=== PATIENT | female | born 1955 | race Caucasian/White ===

== ENCOUNTER 2024-10-18 10:52 | Outpatient (REF) | payer MEDICARE, MEDICAID, SELFPAY ==
--- NOTE | ~2024-10-18 | XR_ITS ---
CLINICAL HISTORY: M54.9 - Dorsalgia, unspecified 4 views thoracic spine Comparison: None Findings: Normal alignment. No acute fractures or dislocation. There is multiple level degenerative disc change. IMPRESSION: No acute findings. This document has been electronically signed by: Rodney Barrientos MD on 10/19/2024 09:46:42
--- NOTE | ~2024-10-18 | XR_ITS ---
CLINICAL HISTORY: M25.551 - Pain in right hip 2 view right hip Comparison: None Findings: The bones are intact. No significant arthritic change. The soft tissues are unremarkable. IMPRESSION: No acute findings. This document has been electronically signed by: Rodney Barrientos MD on 10/19/2024 09:44:13
== END 2024-10-18 10:53 | disposition home or self-care (01) ==
LOC: HO.XRAY 10:52
DX: J45.909 Unspecified asthma, uncomplicated (principal); F41.9 Anxiety disorder, unspecified; F32.A Depression, unspecified; F41.0 Panic disorder [episodic paroxysmal anxiety]; M81.0 Age-related osteoporosis without current pathological fracture; M79.7 Fibromyalgia; I10 Essential (primary) hypertension; E03.9 Hypothyroidism, unspecified; H53.8 Other visual disturbances; H40.059 Ocular hypertension, unspecified eye; R09.89 Other specified symptoms and signs involving the circulatory and respiratory systems; M25.551 Pain in right hip; D22.9 Melanocytic nevi, unspecified; M54.9 Dorsalgia, unspecified; R00.2 Palpitations; Z79.899 Other long term (current) drug therapy
CPT/HCPCS: 72070; 73502; 96127; 99202

== ENCOUNTER 2024-10-18 10:52 | Outpatient (AMB) | payer MEDICARE, MEDICAID, SELFPAY ==
--- NOTE | 2024-10-18 10:54 | A.OFFPC_ITS ---
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 Transferring care from [place] (Sonu Bond) . Medical records have been requested and have not received. Requesting for EKG and referral to Endocrine for Thyroid. See psy in [place]. Engine Room Helper Required: Yes Engine Room Helper Language: Hospice Superintendent Name: Lilian ([id number]) Information Interpreted: non-clinical & clinical Bulk Mail Technician: Present Accompanied by: Son-inlaw Allergies Iodinated Contrast Media Allergy (Intermediate, Verified 10/18/24 11:17) Itching iodine Allergy (Intermediate, Verified 10/18/24 11:17) Itching latex Allergy (Intermediate, Verified 10/18/24 11:17) Hives Sulfa (Sulfonamide Antibiotics) Allergy (Intermediate, Verified 10/18/24 11:17) Hives Medication List - Last Reconciled 10/18/24 by Angela Justin PA-C albuterol sulfate 90 mcg/actuation inhalation alendronate 35 mg PO QWEEK amlodipine 10 mg PO DAILY aspirin 81 mg PO DAILY clonazepam 1 mg PO TID PRN evolocumab (Repatha SureClick) 140 mg subcut Q2W famotidine 40 mg PO DAILY levothyroxine (Synthroid) 75 mcg PO DAILY lisinopril 40 mg PO DAILY montelukast 10 mg PO DAILY propranolol 40 mg PO ONCE sertraline 100 mg PO BID sucralfate 1 g PO BID trazodone 100 mg PO BEDTIME Tobacco use date assessed: 10/18/24 Fall risk assessment: No Falls in past year Last assessed Fall Risk: 10/18/24 Dental Screening Dental Screen Date: 10/18/24 Did you have a dental visit in the last 12 months?: No Did you have a dental problem in the last 6 months where you did not have access to dental care?: No Was dental information given to patient?: Patient declined 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 private eye Lilian ([id number]) was used for the duration of this visit. Sees psych through [facility], was previously being evaluated by endocrinology, Rheumatology and Ophthalmology. Presenting with chronic hip and low back pain following a fall from two years ago. The pain is persistent, described as a feeling of the hip being stuck affecting mobility with certain movements, worsened with prolonged standing. There is also associated mid back pain radiating to the sides and a burning sensation noted. The patient also reports visual disturbances characterized by seeing pink and experiencing low vision. Previous evaluation noted elevated intraocular pressure at 24 mmHg. Dermatological concerns include changing moles with one on the back increasing in size and another on the breast changing to a lilac color. Episodes of palpitations have been reported, not usually related to exertion and occur in various positions. The patient was also evaluated for suspected sleep apnea but has not undergone testing since the move to her current location. FORMERLY [facility], [facility] Surgical History History of YAG laser iridotomy of both eyes History of hysterectomy History of unilateral oophorectomy History of arthroplasty of left shoulder History of 3 sections Social History Housing: House Alcohol intake: never Patient Tobacco Use Status: Never used Tobacco e-Cigarette/Vaping Use: Never Used Second Hand Smoke Exposure: No service: No Current occupational status: unemployed Cognitive needs: No Hearing needs: No Vision needs: Yes (Glasses) Questionnaire PHQ-9 Over the last 2 weeks, how often have you been bothered by any of the following problems? 1. Little interest or pleasure in doing things: more than half the days 2. Feeling down, depressed, or hopeless: nearly every day 3. Trouble falling or staying asleep, or sleeping too much: nearly every day 4. Feeling tired or having little energy: nearly every day 5. Poor appetite or overeating: not at all 6. Feeling bad about yourself - or that you are a failure or have let yourself or your family down: several days 7. Trouble concentrating on things, such as reading the newspaper or watching television: several days 8. Moving or speaking so slowly that other people could have noticed. Or the opposite - being so fidgety or restless that you have been moving around a lot more than usual: several days 9. Thoughts that you would be better off or of hurting yourself in some way: not at all Total score: 14 Depression Screening Interpretation: Positive Depression Screening Follow-up: Existing condition and In treatment Depression Screening Done: Yes 54848 - PHQ-9 Billing: Yes Source: Developed by Drs. Oseas Barrera, Shelia Malagon, Angelo Quintana and colleagues, with an educational jacqueline from [employer]. Thrive Questionnaire Date Thrive assessed: 10/18/24 I am a: Patient What is your living situation today?: I do not have a steady places to live I am temporarily staying with others Within the past 12 months, did the food you bought not last and you didn't have the money to get more?: Sometimes True Within the past 12 months, did you worry whether your food would run out before you got money to buy more?: Sometimes True Do you have trouble paying for medicines?: No Do you have trouble getting transportation to medical appointments?: Yes Do you have trouble paying your heating and electricity bill?: Yes Do you have trouble taking care of your child, family member or friend?: No Do you have trouble with day-to-day activities such as bathing, preparing meals, shopping, managing finances, etc.?: I choose not to answer this question Are you currently unemployed and looking for a job?: No Are you interested in more education?: No Please select the resources that you would like help with: Housing/Half-Way, Food, Transportation and Utilities Currently or been in a relationship where the following occur: No concerns reported THRIVE Score: 5 AUDIT C Alcohol Use Questionnaire (AUDIT-C) 1. How often do you have a drink containing alcohol?: Never 3. How often do you have six or more drinks on one occasion?: Never Total Score: 0 RESHMA-7 AMB Questionnaire RESHMA-7 Date RESHMA - 7 assessed: 10/18/24 Feeling nervous, anxious, or on edge: 3 = Nearly every day Not being able to stop or control worryin = Nearly every day Worrying too much about different things: 3 = Nearly every day Trouble relaxin = More than half the days Being so restless that it is hard to sit still: 3 = Nearly every day Becoming easily annoyed or irritable: 3 = Nearly every day Feeling afraid as if something awful might happen: 3 = Nearly every day Total RESHMA-7 score (0-4 normal; 5-9 mild; 10-14 moderate; 15-21 severe): 20 Source: Developed by Drs. Oseas Barrera, Shelia Malagon, Angelo Quintana and colleagues, with an educational jacqueline from [employer]. RESHMA-7 Assessment Billing RESHMA-7 Assessment Tool: RESHMA-7 Assessment 45816 Review of Systems Const Denies body aches, Denies chills, Denies fever(s), Denies headache(s) and Denies poor appetite Eyes Reports as per HPI ENT Denies dysphagia, Denies dizziness, Denies headache(s) and Denies odynophagia Card Denies chest pain, Denies irregular heart rhythm, Denies lightheadedness, Reports palpitations and Denies dyspnea Resp Denies cough and Denies dyspnea GI Denies abdominal pain, Denies dysphagia, Denies nausea, Denies odynophagia and Denies vomiting Reports no additional complaints Musc Reports as per HPI and Denies abnormal gait Skin/Breast Reports system reviewed and no additional complaints, except as documented Neuro Denies abnormal gait, Denies dizziness and Denies headache(s) Psych Reports no additional complaints Endo Reports palpitations Physical exam (Primary Care) Vital Signs: Last Vital Signs Temp 97.1 F 10/18/24 10:58 Pulse 76 10/18/24 10:58 BP 120/70 10/18/24 10:58 Pulse Ox 96 10/18/24 10:58 Oxygen Delivery Method Room Air 10/18/24 10:58 BMI result Body Mass Index 25.8 Tobacco/Smoking Status: Tobacco use Status Tobacco use date assessed 10/18/24 10/18/24 10:55 Patient Tobacco Use Status Never used Tobacco 10/18/24 11:23 e-Cigarette/Vaping Use Never Used 10/18/24 11:23 PHQ-9: PHQ-9 Score PHQ-9: Total score 14 10/18/24 11:26 Depression Screening Interpretation: Positive Depression Screening Follow-up: Existing condition and In treatment Thrive Assessment: Date of Thrive Assessment Date Thrive assessed 10/18/24 10/18/24 10:55 Currently or been in a relationship where the following occur: No concerns reported Const General: cooperative, healthy appearing, comfortable and no acute distress Orientation/consciousness: patient oriented x3 HENMT Head: Yes normocephalic Ears: hearing grossly normal bilaterally General nose exam: Normal external nose present Eyes General: appearance normal, both eyes and all related structures Conjunctivae: conjunctivae normal Neck Neck: Yes full ROM and Yes no lymphadenopathy Resp Effort & Inspection: normal respiratory effort Auscultation: clear to auscultation bilaterally, no crackles, no rales, no rhonchi and no wheezes Cardio Rate: regular rate Rhythm: regular rhythm Back/Spine/Pelvis Other: Pain to palpation over thoracic paraspinal muscles no tenderness to palpation over the spine. Tenderness to palpation over right hip and pain with lateral raise of right hip. Skin General skin exam: no rashes or lesions noted Neuro General: patient oriented x3 Gait exam (Neuro): Normal gait present Extrem General: Yes normal to inspection, Yes full ROM and No edema Psych Affect: normal affect Attitude: cooperative Insight: Good insight present (Psych) Judgement: Good judgement present (Psych) Coding Level of Care Code New Pt Level 4 (28181) Diagnoses Asthma J45.909 Anxiety F41.9 Depression F32.A Panic attack F41.0 Osteoporosis M81.0 Fibromyalgia M79.7 Hypertension I10 Hypothyroid E03.9 Blurry vision H53.8 Increased intraocular pressure H40.059 Choking episode occurring at night R09.89 Right hip pain M25.551 Atypical nevi D22.9 Mid back pain M54.9 Palpitations R00.2 Additional Codes RESHMA-7 Assessment Billing - RESHMA-7 Assessment Tool: RESHMA-7 Assessment 14616 ([id number]) PHQ-9 - 35275 - PHQ-9 Billing: Yes ([id number]) Assessment & Plan Assessment & Plan (1) Asthma: Code(s): J45.909 - Unspecified asthma, uncomplicated Category: Medical Plan: Asthma currently controlled on present medications. Continue on Montelukast and albuterol prn.? Avoid triggers such as allergies. (2) Anxiety: Code(s): F41.9 - Anxiety disorder, unspecified Category: Medical Plan: Sees psych through [facility] and currently on medication. On sertraline, trazodone , and clonazepam as needed. Feels good on these medications and continue to follow with [facility]. (3) Depression: Code(s): F32.A - Depression, unspecified Category: Medical Plan: see above (4) Panic attack: Code(s): F41.0 - Panic disorder [episodic paroxysmal anxiety] Category: Medical Plan: see above (5) Osteoporosis: Code(s): M81.0 - Age-related osteoporosis without current pathological fracture Category: Medical Plan: Currently on alendronate by last PCP. She is requesting a referral to endocrinology which was placed today. (6) Fibromyalgia: Code(s): M79.7 - Fibromyalgia Category: Medical Plan: Patient not currently being treated for fibromyalgia but was being seen by rheumatology while in [place]. Referral was placed to rheumatology today. (7) Hypertension: Code(s): I10 - Essential (primary) hypertension Category: Medical Plan: Continue on current blood pressure medication. Avoid salt intake and encourage healthy diet and regular exercise. (8) Hypothyroid: Code(s): E03.9 - Hypothyroidism, unspecified Category: Medical Plan: Currently on Synthroid 75mcg plan to obtain repeat blood work. Patient had reaction to levothyroxine and requires the name brand Synthroid (9) Blurry vision: Code(s): H53.8 - Other visual disturbances Category: Medical Plan: Patient reporting blurry vision and seeing a ?pink color? she is found to have increased intra-ocular pressure would be evaluated by a retina specialist in [place]. Referral was placed to Ophthalmology today. (10) Increased intraocular pressure: Code(s): H40.059 - Ocular hypertension, unspecified eye Category: Medical Plan: See above (11) Choking episode occurring at night: Code(s): R09.89 - Other specified symptoms and signs involving the circulatory and respiratory systems Category: Medical Plan: Patient reporting choking episode at bedtime and was previously being evaluated for sleep apnea but did not complete the sleep study test. Referral was placed for home sleep study (12) Right hip pain: Code(s): M25.551 - Pain in right hip Category: Medical Plan: Patient complaining of right hip pain plan to obtain x-ray for further evaluation patient may use Tylenol and topical creams as needed for pain. (13) Atypical nevi: Code(s): D22.9 - Melanocytic nevi, unspecified Category: Medical Plan: Referral was placed for Dermatology (14) Mid back pain: Code(s): M54.9 - Dorsalgia, unspecified Category: Medical Plan: Mid back x-ray ordered for further evaluation. She has been having pain in the paraspinal muscles likely related to her posture recommend heating pads and topical muscle creams. (15) Palpitations: Code(s): R00.2 - Palpitations Category: Medical Plan: Patient complaining of intermittent palpitations without symptoms but just feeling like her heart is racing. Plan to obtain Holter monitor for further evaluation and can consider referral to Cardiology Plan I have outlined a detailed plan that includes scheduling x-rays of the patient's hip and spine for further evaluation of her chronic pain and posture issues. An urgent referral to an client portfolio manager has been made to address her concerns of visual changes and elevated intraocular pressure, possibly indicating glaucoma. Dermatological evaluation by a specialist is essential for the changing moles she reports. A Holter monitor study will be conducted to analyze her cardiac rhythm irregularities, and a home sleep study will be set up to confirm suspected sleep apnea. I have coordinated referrals and follow-up care with the required specialists, ensuring that appointments are efficiently scheduled. This note was constructed using voice recognition software. While every effort has been made to ensure accuracy and life agent, still areas may have been included sometimes these areas may affect the content or meeting of the given symptoms. Total time spent caring for the patient today was 45 minutes. This includes time spent before the visit reviewing the chart, time spent during the visit, and time spent after the visit and documentation. Patient was informed and verbally consented to the use of an ambient scribe for clinic note documentation during this visit. Orders: Orders TSH reflex Free T4 Today E03.9 - Hypothyroidism, unspecified, Z00.00 - Encounter for general adult medical examination without abnormal findings Free T4 (Free Thyroxine) Today E03.9 - Hypothyroidism, unspecified, Z00.00 - Encounter for general adult medical examination without abnormal findings Comprehensive Met. Panel Today I10 - Essential (primary) hypertension, Z00.00 - Encounter for general adult medical examination without abnormal findings Complete Blood Count Auto Diff Today I10 - Essential (primary) hypertension, Z00.00 - Encounter for general adult medical examination without abnormal findings Vitamin D 25-OH Total Today I10 - Essential (primary) hypertension, Z00.00 - Encounter for general adult medical examination without abnormal findings RT home sleep study Today R09.89 - Other specified symptoms and signs involving the circulatory and respiratory systems XR thoracic spine 2V Today M54.9 - Dorsalgia, unspecified Vitamin B12 and Folate Today I10 - Essential (primary) hypertension, Z13.21 - Encounter for screening for nutritional disorder Hemoglobin A1c Today Z13.1 - Encounter for screening for diabetes mellitus Lipid Panel Today Z13.220 - Encounter for screening for lipoid disorders XR hip RT min 2V Today M25.551 - Pain in right hip ECG 3 day holter monitor Today R00.2 - Palpitations Referrals Endocrinology Referral E03.9 - Hypothyroidism, unspecified, M81.0 - Age- related osteoporosis without current pathological fracture Rheumatology Referral M79.7 - Fibromyalgia Ophthalmology Referral H40.059 - Ocular hypertension, unspecified eye, H53.8 - Other visual disturbances Dermatology Referral D22.9 - Melanocytic nevi, unspecified Medications: New evolocumab (Capri Riojas) 140 mg subcut Q2W 2 mL 0RF Synthroid (levothyroxine) 75 mcg PO DAILY 90 tabs 0RF NS
[2024-10-18 10:58] VITALS: BP 120/70; PULSE 76; TEMP 36.2; O2SAT 96; BMI 25.8
== END 2024-10-18 12:07 | disposition home or self-care (01) ==
LOC: HO.HMCH 10:53
DX: J45.909 Unspecified asthma, uncomplicated (principal); F41.9 Anxiety disorder, unspecified; F32.A Depression, unspecified; F41.0 Panic disorder [episodic paroxysmal anxiety]; M81.0 Age-related osteoporosis without current pathological fracture; M79.7 Fibromyalgia; I10 Essential (primary) hypertension; E03.9 Hypothyroidism, unspecified; H53.8 Other visual disturbances; H40.059 Ocular hypertension, unspecified eye; R09.89 Other specified symptoms and signs involving the circulatory and respiratory systems; M25.551 Pain in right hip; D22.9 Melanocytic nevi, unspecified; M54.9 Dorsalgia, unspecified; R00.2 Palpitations

== ENCOUNTER → 2024-10-18 12:32 | Outpatient (BNV) | payer MEDICARE, MEDICAID, SELFPAY | PROVIDERS: Visit Provider Specialist | DX: M25.551 Pain in right hip (principal); M54.9 Dorsalgia, unspecified | CPT/HCPCS: 72070; 73502 ==

== ENCOUNTER → 2024-10-28 12:51 | Outpatient (REF) | payer MEDICARE, MEDICAID, SELFPAY | LOC: HO.CARD 12:51 | DX: R00.2 Palpitations (principal) | CPT/HCPCS: 93242 ==

== ENCOUNTER → 2024-10-28 12:53 | Outpatient (BNV) | payer MEDICARE, MEDICAID, SELFPAY | PROVIDERS: Visit Provider Internal Medicine | DX: I47.10 Supraventricular tachycardia, unspecified (principal) | CPT/HCPCS: 93244 ==

== ENCOUNTER 2024-11-27 12:48 | Outpatient (REF) | payer MEDICARE, MEDICAID, SELFPAY ==
--- NOTE | ~2024-11-27 | MM_ITS ---
EXAMINATION: DXA BONE DENSITY AXIAL HISTORY: Z78.0 - Asymptomatic menopausal state TECHNIQUE: [place] Dual energy absorptiometry (DEXA) of the lumbar spine, total left hip, and femoral neck was performed. COMPARISON: There are no prior studies for comparison. FINDINGS: The bone mineral density of the lumbar spine is 0.904 g/cm2, corresponding to a T-score of -2.3, and a Z-score of -0.5. This is indicative of osteopenia. The bone mineral density of the left total hip is 0.775 g/cm2, corresponding to a T-score of -1.8, and a Z-score of -0.3. This is indicative of osteopenia. The bone mineral density of the left femoral neck is 0.740 g/cm2, corresponding to a T-score of -2.1, and a Z-score of -.4. This is indicative of osteopenia. FRACTURE RISK: The FRAX index suggests a risk of major osteoporotic fracture of 11.8%, and of hip fracture 2.9%. MM/XR DEXA axial skeleton IMPRESSION: Based on bone mineral density, and according to World Health Organization (WHO) criteria, the diagnosis is consistent with osteopenia. Statistically, 68% of repeat scans fall within 1 SD (+/- 0.010 g/cm2 for AP spine L1-L4) and 1 SD (+/- 0.012 g/cm2 for femur total) FRAX is a trademark of the [employer] Met[employer], a World Health Organization (WHO) Collaborating Center. Electronically signed by: Oseas Cheatham MD 11/27/2024 01:29 PM EDT
== END 2024-11-27 12:49 | disposition home or self-care (01) ==
LOC: HO.MAMMO 12:48
DX: Z13.820 Encounter for screening for osteoporosis (principal); Z78.0 Asymptomatic menopausal state
CPT/HCPCS: 77080

== ENCOUNTER → 2024-11-27 13:00 | Outpatient (BNV) | payer MEDICARE, MEDICAID, SELFPAY | PROVIDERS: Visit Provider Radiology Diagnostic Radiology | DX: E28.39 Other primary ovarian failure (principal) | CPT/HCPCS: 77080 ==

== ENCOUNTER 2024-11-29 08:43 | Outpatient (REF) | payer MEDICARE, MEDICAID, SELFPAY ==
[2024-11-29 11:27] LABS: MANUAL DIFF FLAG NO
[2024-11-29 11:54] LABS: Hematocrit 40.1 % (37.0-47.0); Hemoglobin 13.2 g/dl (12.0-16.0); Imm Gran Abs Auto 0.01 X10*3/uL (0.00-0.03); Imm Gran Pct Auto 0.2 % (0.0-0.4); Lymphocytes Absolute Auto 2.0 X10*3/uL (1.2-4.9); Mean Corpuscular HGB Conc 32.9 g/dl (31.0-35.0); Mean Corpuscular Hemoglobin 30.3 pg (27.0-33.0); Mean Corpuscular Volume 92.0 fL (80.0-98.0); NRBC Abs Auto 0.000 X10*3/uL (0.0-0.012); NRBC Pct Auto 0.0 /100WBC (0.0-0.2); Platelet Count 233 X10*3/uL (160-400); Red Blood Count 4.36 X10*6/uL (4.20-5.50); White Blood Count 4.5 X10*3/uL (4.8-10.8)
[2024-11-29 12:01] LABS: Alanine Aminotransferase 48 U/L (0-31); Albumin Level 4.3 g/dL (3.5-5.0); Alkaline Phosphatase 98 U/L (39-117); Anion Gap 11 (12-20); Aspartate Amino Transferase 42 U/L (5-31); Blood Urea Nitrogen 24 mg/dL (9-16); Calcium 9.8 mg/dL (8.4-10.2); Carbon Dioxide 29 mmol/L (22-29); Chloride 106 mmol/L (96-108); Cholesterol 246 mg/dL (<200); Estimated Glomerular Filt Rate > 60; HDL Cholesterol 78 mg/dL (>40); Potassium 4.4 mmol/L (3.3-5.1); Sodium 142 mmol/L (135-145); Total Protein 7.1 g/dL (6.5-8.0); Triglycerides 82 mg/dL (<150)
[2024-11-29 12:03] LABS: Hemoglobin A1C 126.5559 umol/L; Total Hemoglobin (HGBA1C) 3524.7556 umol/L
[2024-11-29 12:21] LABS: Free T4 (Free Thyroxine) 1.19 ng/dL (0.71-1.85)
[2024-11-29 12:47] LABS: Folate 14.8 ng/mL (> or = 4.0); Vitamin B12 > 2000 pg/mL (200-900)
== END 2024-11-29 08:44 | disposition home or self-care (01) ==
LOC: HO.WFDLDS 08:43
DX: Z00.00 Encounter for general adult medical examination without abnormal findings (principal); I10 Essential (primary) hypertension; E03.9 Hypothyroidism, unspecified; Z13.21 Encounter for screening for nutritional disorder; Z13.1 Encounter for screening for diabetes mellitus; Z13.220 Encounter for screening for lipoid disorders
CPT/HCPCS: 36415; 80053; 80061; 82306; 82607; 82746; 83036; 84439; 84443; 85025

== ENCOUNTER 2024-12-04 15:01 | Outpatient (AMB) | payer MEDICARE, MEDICAID, SELFPAY ==
[2024-12-04 15:05] VITALS: BP 112/60; BMI 26.1
--- NOTE | 2024-12-04 15:05 | A.OFFPC_ITS ---
Vital Signs 12/04/24 15:05 Height 4 ft 11.85 in Weight 133 lb BMI 26.1 BP 112/60 Blood Pressure Location Lt brachial Position Sitting Intake Visit Reasons: 1 month Front Desk Supervisor Required: Yes Front Desk Supervisor Language: Kazakh Accompanied by: Son Allergies Iodinated Contrast Media Allergy (Intermediate, Verified 10/18/24 11:17) Itching iodine Allergy (Intermediate, Verified 10/18/24 11:17) Itching latex Allergy (Intermediate, Verified 10/18/24 11:17) Hives Sulfa (Sulfonamide Antibiotics) Allergy (Intermediate, Verified 10/18/24 11:17) Hives Medication List - Last Reconciled 12/04/24 by Angela Justin PA-C albuterol sulfate 90 mcg/actuation 1 puff inhalation Q4-6H PRN alendronate 35 mg PO QWEEK amlodipine 10 mg PO DAILY aspirin 81 mg PO DAILY clonazepam 1 mg PO TID PRN evolocumab (Repatha SureClick) 140 mg subcut Q2W famotidine 40 mg PO DAILY lisinopril 40 mg PO DAILY montelukast 10 mg PO DAILY propranolol 40 mg PO DAILY sertraline 100 mg PO BID sucralfate 1 g PO BID Synthroid (levothyroxine) 75 mcg PO DAILY NS trazodone 100 mg PO BEDTIME Tobacco use date assessed: 12/04/24 Last assessed Fall Risk: 12/04/24 Dental Screening Dental Screen Date: 12/04/24 Did you have a dental visit in the last 12 months?: No Did you have a dental problem in the last 6 months where you did not have access to dental care?: No Was dental information given to patient?: No HPI 1 month HPI Details 69 year old female with hypertension, fi bromyalgia, asthma, osteoporosis, anxiety, hypothyroid last seen 09/2024 coming in for follow up. In review of the notes, patient completed holter monitor 10/2024 Normal sinus rhythm no other abnormality. Presenting with hyperlipidemia and elevated liver enzymes. The patient has been dealing with high cholesterol for several years and is currently on Repatha, prescribed by her primary physician in [place]. The LDL cholesterol level is 152 mg/dL, which is above the desired level of less than 130 mg/dL. The patient cannot tolerate statins due to liver pain experienced with previous medications like Lipitor. The patient has elevated AST and ALT levels, and a history of hepatitis and pancreatitis, which raises concerns about liver function. The patient is on a B12 supplement, which may contribute to the high B12 levels observed in her blood work. Patient was recently seen by Ophthalmology and advised to see a retina specialist for possible retinal detachment. The patient underwent surgery on her right shoulder and continues to experience pain, requiring orthopedic evaluation. The patient reports back pain and is advised to seek evaluation at a specialized spine center. [facility] Surgical History History of YAG laser iridotomy of both eyes History of hysterectomy History of unilateral oophorectomy History of arthroplasty of left shoulder History of 3 sections Social History Housing: House Alcohol intake: never Patient Tobacco Use Status: Never used Tobacco e-Cigarette/Vaping Use: Never Used Second Hand Smoke Exposure: No service: No Current occupational status: unemployed Cognitive needs: No Hearing needs: No Vision needs: Yes (Glasses) Questionnaire PHQ-9 Over the last 2 weeks, how often have you been bothered by any of the following problems? 1. Little interest or pleasure in doing things: more than half the days 2. Feeling down, depressed, or hopeless: nearly every day 3. Trouble falling or staying asleep, or sleeping too much: nearly every day 4. Feeling tired or having little energy: nearly every day 5. Poor appetite or overeating: not at all 6. Feeling bad about yourself - or that you are a failure or have let yourself or your family down: several days 7. Trouble concentrating on things, such as reading the newspaper or watching television: several days 8. Moving or speaking so slowly that other people could have noticed. Or the opposite - being so fidgety or restless that you have been moving around a lot more than usual: several days 9. Thoughts that you would be better off or of hurting yourself in some way: not at all Total score: 14 Depression Screening Interpretation: Positive Depression Screening Follow-up: Existing condition and In treatment Depression Screening Done: Yes 63751 - PHQ-9 Billing: Yes Source: Developed by Drs. Oseas Barrera, Angelo Pichardo and colleagues, with an educational jacqueline from [employer]. Thrive Questionnaire Date Thrive assessed: 12/04/24 I am a: Patient What is your living situation today?: I do not have a steady places to live I am temporarily staying with others Within the past 12 months, did the food you bought not last and you didn't have the money to get more?: Sometimes True Within the past 12 months, did you worry whether your food would run out before you got money to buy more?: Sometimes True Do you have trouble paying for medicines?: No Do you have trouble getting transportation to medical appointments?: Yes Do you have trouble paying your heating and electricity bill?: Yes Do you have trouble taking care of your child, family member or friend?: No Do you have trouble with day-to-day activities such as bathing, preparing meals, shopping, managing finances, etc.?: I choose not to answer this question Are you currently unemployed and looking for a job?: No Are you interested in more education?: No Currently or been in a relationship where the following occur: No concerns reported THRIVE Score: 5 RESHMA-7 AMB Questionnaire RESHMA-7 Date RESHMA - 7 assessed: 12/04/24 Source: Developed by Drs. Oseas Barrera, Angelo Pichardo and colleagues, with an educational jacqueline from [employer]. Review of Systems Const Denies body aches, Denies chills, Denies fever(s), Denies headache(s) and Denies poor appetite Eyes Reports no additional complaints ENT Denies dizziness and Denies headache(s) Card Denies chest pain, Denies lightheadedness and Denies dyspnea Resp Denies dyspnea GI Reports as per HPI, Reports abdominal pain, Denies nausea and Denies vomiting Reports no additional complaints Musc Reports no additional complaints and Denies abnormal gait Skin/Breast Reports system reviewed and no additional complaints, except as documented Neuro Denies abnormal gait, Denies dizziness and Denies headache(s) Psych Reports no additional complaints Physical exam (Primary Care) Vital Signs: Last Vital Signs BP 112/60 12/04/24 15:05 BMI result Body Mass Index 26.1 Tobacco/Smoking Status: Tobacco use Status Tobacco use date assessed 12/04/24 12/04/24 15:15 Patient Tobacco Use Status Never used Tobacco 12/04/24 15:11 e-Cigarette/Vaping Use Never Used 12/04/24 15:11 PHQ-9: PHQ-9 Score PHQ-9: Total score 14 12/04/24 15:25 Depression Screening Interpretation: Positive Depression Screening Follow-up: Existing condition and In treatment Thrive Assessment: Date of Thrive Assessment Date Thrive assessed 12/04/24 12/04/24 15:15 Currently or been in a relationship where the following occur: No concerns reported Const General: cooperative, healthy appearing, comfortable and no acute distress Orientation/consciousness: patient oriented x3 HENMT Head: Yes normocephalic Ears: hearing grossly normal bilaterally General nose exam: Normal external nose present Eyes General: appearance normal, both eyes and all related structures Conjunctivae: conjunctivae normal Neck Neck: Yes full ROM and Yes no lymphadenopathy Resp Effort & Inspection: normal respiratory effort Auscultation: clear to auscultation bilaterally, no crackles, no rales, no rhonchi and no wheezes Cardio Rate: regular rate Rhythm: regular rhythm GI Palpation (GI): Soft to palpation, not firm, nontender, no guarding, not rigid, no masses and No Rebound tenderness present Skin General skin exam: no rashes or lesions noted Neuro General: patient oriented x3 Gait exam (Neuro): Normal gait present Extrem General: Yes normal to inspection, Yes full ROM and No edema Psych Affect: normal affect Attitude: cooperative Insight: Good insight present (Psych) Judgement: Good judgement present (Psych) Coding Level of Care Code Est Pt Level 4 (33213) Diagnoses Elevated LFTs R79.89 RUQ discomfort R10.11 Left shoulder pain M25.512 Low back pain M54.50 Mid back pain M54.9 High serum vitamin B12 R79.89 Retinal detachment H33.20 Hypercholesterolemia E78.00 Hypertension I10 Palpitations R00.2 Additional Codes PHQ-9 - 49974 - PHQ-9 Billing: Yes ([id number]) Assessment & Plan Assessment & Plan (1) Elevated LFTs: Code(s): R79.89 - Other specified abnormal findings of blood chemistry Category: Medical Plan: Plan to repeat liver tests as well as hepatitis panel. Also plan to obtain abdominal ultrasound for elevation of LFTs and right upper quadrant discomfort. (2) RUQ discomfort: Code(s): R10.11 - Right upper quadrant pain Category: Medical Plan: Patient reporting right upper quadrant discomfort occasionally that last for several minutes before resolving spontaneously. There is no identified inciting events including but not limited to food. On exam there is no tenderness to palpation. Plan to obtain abdominal ultrasound for further evaluation. (3) Left shoulder pain: Comment: hx of surgery but unsure Code(s): M25.512 - Pain in left shoulder Category: Medical Plan: Patient reporting left shoulder pain and does have a history of some kind of procedure but is unsure of the name. However the procedure resulted in her shoulder needing to be immobilized for about 6 months. Likely rotator cuff repair. She is requesting to see a specialist for the continued left shoulder pain and referral was placed to orthopedics today. (4) Low back pain: Code(s): M54.50 - Low back pain, unspecified Category: Medical Plan: Patient reporting low and mid back pain x-rays were within normal limits. She is requesting a referral to Orthopedics and referral was placed to [facility] today. (5) Mid back pain: Code(s): M54.9 - Dorsalgia, unspecified Category: Medical Plan: See above (6) High serum vitamin B12: Code(s): R79.89 - Other specified abnormal findings of blood chemistry Category: Medical Plan: Discontinue vitamin B12 supplement at this time and redrawn 3 months. (7) Retinal detachment: Code(s): H33.20 - Serous retinal detachment, unspecified eye Category: Medical Plan: Patient having possible retinal detachment as told by her pediatric occupational therapist. Referral was placed to a retina specialist today. I did review with her red flag symptoms and when to present for re-evaluation as well. She should continue to follow with her pediatric occupational therapist for further guidance (8) Hypercholesterolemia: Code(s): E78.00 - Pure hypercholesterolemia, unspecified Category: Medical Plan: Avoid foods that are high in cholesterol such as red meat, fried foods, eggs and baked goods. Triglyceride goal of less than 150 and LDL goal of less than 130. Patient is currently on Repatha and has not missed any doses and continues to have significantly elevated cholesterol with LDL at 152. Plan to add Zetia to medication regimen and redraw labs in 3 months. Discussed possible side effects and when to present for re-evaluation (9) Hypertension: Code(s): I10 - Essential (primary) hypertension Category: Medical Plan: Continue on current blood pressure medication. Avoid salt intake and encourage healthy diet and regular exercise. (10) Palpitations: Code(s): R00.2 - Palpitations Category: Medical Plan: Holter monitor was negative and palpitations have resolved at this time. Plan The plan for managing hyperlipidemia includes continuing Repatha and considering the addition of Zetia if dietary modifications do not achieve the desired LDL levels. For elevated liver enzymes, repeat liver function tests will be conducted in a month, and an ultrasound may be ordered if levels remain high. The patient is advised to discontinue supplements due to elevated levels and will have levels rechecked at the next appointment. Referrals have been made for a retina specialist to evaluate retinal detachment and for orthopedic specialists to address shoulder and back pain. This note was constructed using voice recognition software. While every effort has been made to ensure accuracy and clinical recruiter, still areas may have been included sometimes these areas may affect the content or meeting of the given symptoms. Total time spent caring for the patient today was 30 minutes. This includes time spent before the visit reviewing the chart, time spent during the visit, and time spent after the visit and documentation. Patient was informed and verbally consented to the use of an ambient scribe for clinic note documentation during this visit. Orders: Orders IRON PROFILE Today R7.89 - Other specified abnormal findings of blood chemistry Lipid Panel 3 Months E78.00 - Pure hypercholesterolemia, unspecified Liver Panel Today R7.89 - Other specified abnormal findings of blood chemistry Hepatitis B,C Profile Today R7.89 - Other specified abnormal findings of blood chemistry Ferritin Today R7.89 - Other specified abnormal findings of blood chemistry Lipase Today R79.89 - Other specified abnormal findings of blood chemistry Amylase Today R79.89 - Other specified abnormal findings of blood chemistry US abdomen complete Today R10.11 - Right upper quadrant pain, R79.89 - Other specified abnormal findings of blood chemistry Vitamin B12 and Folate 3 Months R79.89 - Other specified abnormal findings of blood chemistry Referrals Orthopedics Referral M25.512 - Pain in left shoulder Ophthalmology Referral H33.20 - Serous retinal detachment, unspecified eye Orthopedics Referral M54.50 - Low back pain, unspecified, M54.9 - Dorsalgia, unspecified Medications: New ezetimibe (Zetia) 10 mg PO DAILY 90 tabs 0RF Refilled evolocumab (Repatha SureClick) 140 mg subcut Q2W 6 mL 1RF R79.89 - Other specified abnormal findings of blood chemistry
== END 2024-12-04 16:05 | disposition home or self-care (01) ==
LOC: HO.HMCH 15:02
DX: R79.89 Other specified abnormal findings of blood chemistry (principal); R10.11 Right upper quadrant pain; M25.512 Pain in left shoulder; M54.50 Low back pain, unspecified; M54.9 Dorsalgia, unspecified; H33.20 Serous retinal detachment, unspecified eye; E78.00 Pure hypercholesterolemia, unspecified; I10 Essential (primary) hypertension; R00.2 Palpitations

== ENCOUNTER → 2024-12-04 15:01 | Outpatient (BNVA) | payer MEDICARE, MEDICAID, SELFPAY | DX: R79.89 Other specified abnormal findings of blood chemistry (principal); R10.11 Right upper quadrant pain; M25.512 Pain in left shoulder; M54.50 Low back pain, unspecified; M54.9 Dorsalgia, unspecified; E78.00 Pure hypercholesterolemia, unspecified; R00.2 Palpitations; I10 Essential (primary) hypertension | CPT/HCPCS: 96127; 99212 ==

== ENCOUNTER 2024-12-18 13:25 | Outpatient (AMB) | payer MEDICARE, MEDICAID, SELFPAY ==
[2024-12-18 13:27] VITALS: BP 118/64; PULSE 70; O2SAT 96; BMI 26.1
--- NOTE | 2024-12-18 13:27 | MHC.OFFVIS ---
Vital Signs 12/18/24 13:27 Height 4 ft 11.85 in Weight 132 lb 15.02 oz BMI 26.1 BP 118/64 Blood Pressure Location Lt brachial Position Sitting Pulse 70 Pulse Source Pulse Oximeter Pulse Oximetry (%) 96 Oxygen Delivery Method Room Air Intake Visit Reasons: Age related osteoporosis Intake Note: New patient internally referred by PCP for Osteoporosis, last DEXA was on 11/27/2024 at [facility] [place]. Registered Route Associate Required: Yes Registered Route Associate Language: Toolmaker Services: Registered Route Associate Present Registered Route Associate Name: Frances handle machine operator services Information Interpreted: non-clinical & clinical Accompanied by: Self / Same As Patient Allergies Iodinated Contrast Media Allergy (Intermediate, Verified 12/18/24 13:31) Itching iodine Allergy (Intermediate, Verified 12/18/24 13:31) Itching latex Allergy (Intermediate, Verified 12/18/24 13:31) Hives Sulfa (Sulfonamide Antibiotics) Allergy (Intermediate, Verified 12/18/24 13:31) Hives Medication List - Last Reconciled 12/18/24 by Oseas Alejandro MD albuterol sulfate 90 mcg/actuation 1 puff inhalation Q4-6H PRN alendronate 35 mg PO QWEEK amlodipine 10 mg PO DAILY aspirin 81 mg PO DAILY clonazepam 1 mg PO TID PRN evolocumab (Repatha SureClick) 140 mg subcut Q2W ezetimibe (Zetia) 10 mg PO DAILY famotidine 40 mg PO DAILY lisinopril 40 mg PO DAILY montelukast 10 mg PO DAILY propranolol 40 mg PO DAILY sertraline 100 mg PO BID sucralfate 1 g PO BID Synthroid (levothyroxine) 75 mcg PO DAILY NS trazodone 100 mg PO BEDTIME HPI Comments Details: 69 YO Female is seen in cfonsultation at the request of PCP for low bone mass First diagnosed in 1 yr ago .Saw specialist in [place] . Had thyroid nodules Received treatment with alendronate , from 11/2023 to 11/2024 . Tolerated treatment well without complication. No history of pathologic fracture or ONJ. Has few servings of dietary calcium per day in the form of goat cheese, salmon . Not Takes Calcium supplement [] mg daily in divided doses. Not Takes IU of Vitamin D daily. Denies ever using PPI, anticoagulant, antiepileptic or glucocorticoid medication. Does weight bearing exercise 7 days per week in the form of elastic rope . 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 UTD on dental cleanings and sees dentist every 6 months. No planned upcoming dental work or extractions. No tabacco use or Heavy ETOH use DXA dated 11/27/24 : FINDINGS: The bone mineral density of the lumbar spine is 0.904 g/cm2, corresponding to a T-score of -2.3, and a Z-score of -0.5. This is indicative of osteopenia. The bone mineral density of the left total hip is 0.775 g/cm2, corresponding to a T-score of -1.8, and a Z-score of -0.3. This is indicative of osteopenia. The bone mineral density of the left femoral neck is 0.740 g/cm2, corresponding to a T-score of -2.1, and a Z-score of -.4. This is indicative of osteopenia. FRACTURE RISK: The FRAX index suggests a risk of major osteoporotic fracture of 11.8%, and of hip fracture 2.9%. MM/XR DEXA axial skeleton IMPRESSION: Based on bone mineral density, and according to World Health Organization (WHO) criteria, the diagno Labs: [facility] Surgical History History of YAG laser iridotomy of both eyes History of hysterectomy History of unilateral oophorectomy History of arthroplasty of left shoulder History of 3 sections Social History Housing: House Alcohol intake: never Patient Tobacco Use Status: Never used Tobacco e-Cigarette/Vaping Use: Never Used Second Hand Smoke Exposure: No service: No Current occupational status: unemployed Cognitive needs: No Hearing needs: No Vision needs: Yes (Glasses) Physical Exam There are no Cushingoid features. Absence of blue sclera. Absence of kyphosis. Thyroid gland is of nl size and weighs 15 gms. There are no thyroid nodules palpated. Lungs CTA. Heart S1 S2 Reg R/R Abdominal exam benign. Muscle strength 5/5 . Examination of spine reveals absence of tenderness on palpation Assessment & Plan Assessment & Plan (1) Osteoporosis: Code(s): M81.0 - Age-related osteoporosis without current pathological fracture Category: Medical Plan: This is a 69-year-old female found to have low bone mass with partial secondary workup. Based on FRAX, risk for major osteoporotic fracture and hip fracture is low and not sure wo Plan is to complete the secondary workup by checking urine immunofixation, phosphorus level, 24 hour urine for calcium and creatinine. Assuming above is normal we will ensure 1200 mg of calcium and continued vitamin D3 supplement. Would discontinue alendronate. Could consider initiation of raloxifene as patient has a strong family history of breast cancer this would provide protection as well as protection against vertebral fracture in this patient with low bone mass. Will discuss at next visit Orders: Orders Creatinine, 24 Hr Group Today M81.0 - Age-related osteoporosis without current pathological fracture Immunofixation, Random Urine Today M81.0 - Age-related osteoporosis without current pathological fracture Phosphorus Today M81.0 - Age-related osteoporosis without current pathological fracture Calcium, 24 Hr Ur Today M81.0 - Age-related osteoporosis without current pathological fracture Coding Level of Care Code New Pt Level 4 (05423) Diagnoses Osteoporosis M81.0
== END 2024-12-18 14:07 | disposition home or self-care (01) ==
LOC: HO.ENCR 13:26
PROVIDERS: Visit Provider Internal Medicine Endocrinology, Diabetes & Metabolism
DX: M81.0 Age-related osteoporosis without current pathological fracture (principal)
CPT/HCPCS: 99204

== ENCOUNTER → 2024-12-18 13:25 | Outpatient (BNVA) | payer MEDICARE, MEDICAID, SELFPAY | PROVIDERS: Visit Provider Internal Medicine Endocrinology, Diabetes & Metabolism | DX: M81.0 Age-related osteoporosis without current pathological fracture (principal); Z80.3 Family history of malignant neoplasm of breast; Z90.710 Acquired absence of both cervix and uterus | CPT/HCPCS: 99202 ==

== ENCOUNTER → 2024-12-31 09:58 | Outpatient (REF) | payer MEDICARE, MEDICAID, SELFPAY | LOC: HO.SL 09:58 | DX: G47.33 Obstructive sleep apnea (adult) (pediatric) (principal); R09.89 Other specified symptoms and signs involving the circulatory and respiratory systems; R06.83 Snoring; R40.0 Somnolence | CPT/HCPCS: 95806 ==

== ENCOUNTER → 2024-12-31 10:09 | Outpatient (BNV) | payer MEDICARE, MEDICAID, SELFPAY | PROVIDERS: Visit Provider Internal Medicine | DX: G47.33 Obstructive sleep apnea (adult) (pediatric) (principal) | CPT/HCPCS: 95806 ==

== ENCOUNTER 2025-01-17 13:09 | Outpatient (AMB) | payer MEDICARE, MEDICAID, SELFPAY ==
--- NOTE | 2025-01-17 13:31 | MHC.OFFVIS ---
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 HST in chart(AHI-22, JANNIE 76%. APAP 6-20cm). Auxiliary Equipment Tender Required: Yes Auxiliary Equipment Tender Language: Business Excellence Leader Services: Auxiliary Equipment Tender Offered & Declined Auxiliary Equipment Tender Name: Son-in-law Information Interpreted: non-clinical & clinical Accompanied by: Son Allergies Iodinated Contrast Media Allergy (Intermediate, Verified 01/17/25 13:35) Itching iodine Allergy (Intermediate, Verified 01/17/25 13:35) Itching latex Allergy (Intermediate, Verified 01/17/25 13:35) Hives Sulfa (Sulfonamide Antibiotics) Allergy (Intermediate, Verified 01/17/25 13:35) Hives HPI Comments Details: 69 year old [place] female referred to us by Angela Justin, for evaluation of MARIA G. Her son interprets for her. HST c/w AHI 21.9 and oxygen desaturation oxygen 79%. Oxygen below 88%. She has been feeling very tired and difficulty swallowing. She snoring and choking at night, she wakes up gasping for air. She has dry mouth when she wakes up in the morning. She goes to bed at 11pm and wakes up 8am in the morning, with zero bathroom breaks. She has asthma and mixes atrovent with albuterol works more effectively with the nebulizer. She takes a daily nap for 1 hour. She has daily headaches for over an hour or longer and will take acetaminophen for it. BP is well managed. She has restless legs symptoms from the hips to the feet, numbness tingling, pins needles. Mood, diet and Memory okay. [facility] Surgical History History of YAG laser iridotomy of both eyes History of hysterectomy History of unilateral oophorectomy History of arthroplasty of left shoulder History of 3 sections Social History Housing: House Alcohol intake: never Patient Tobacco Use Status: Never used Tobacco e-Cigarette/Vaping Use: Never Used Second Hand Smoke Exposure: No service: No Current occupational status: unemployed Cognitive needs: No Hearing needs: No Vision needs: Yes (Glasses) Physical Exam Vital Signs: Last Vital Signs Pulse 68 01/17/25 13:34 BP 128/70 01/17/25 13:34 Pulse Ox 96 01/17/25 13:34 Oxygen Delivery Method Room Air 01/17/25 13:34 BMI result Body Mass Index 27.3 There are no Cushingoid features. Absence of blue sclera. Absence of kyphosis. Thyroid gland is of nl size and weighs 15 gms. There are no thyroid nodules palpated. Lungs CTA. Heart S1 S2 Reg R/R Abdominal exam benign. Muscle strength 5/5 . Examination of spine reveals absence of tenderness on palpation Const General: cooperative and comfortable Orientation/consciousness: patient oriented x3 HEENT Face and sinus: Yes face symmetric Throat: Yes other (mallampti score of 3) Eyes Pupils: Equal, round and reactive pupils present Neck Neck: Yes full ROM Resp Effort & Inspection: normal respiratory effort and able to speak in complete sentences Neuro General: patient oriented x3 and moves all extremities Cranial nerves: Yes Equal, round and reactive pupils present, Yes Normal accommodation reflex present, Yes Normal facial strength present, Yes Midline tongue present, Yes Ability to bilaterally rotate head present and Yes Ability to bilaterally elevate shoulders present Cognition (Neuro): normal cognition Gait exam (Neuro): Normal gait present Motor exam (neuro): 5/5 motor strength present throughout and Normal motor muscle tone present throughout Psych Appearance: grossly normal Thought process: Normal thought process present Thought content: Normal thought content present Results Reviewed Results Reviewed: Sleep Study severe maria g AHI is 25/hr and oxygen Nadirs to less than 85%. Assessment & Plan Assessment & Plan (1) Sleep apnea: Comment: mod-severe 12/2024 Code(s): G47.30 - Sleep apnea, unspecified Category: Medical Qualifiers: Sleep apnea type: obstructive Qualified Code(s): G47.33 - Obstructive sleep apnea (adult) (pediatric) (2) High serum vitamin B12: Code(s): R79.89 - Other specified abnormal findings of blood chemistry Category: Medical (3) Fatigue: Code(s): R53.83 - Other fatigue Category: Medical Qualifiers: Fatigue type: chronic, unspecified Qualified Code(s): R53.82 - Chronic fatigue, unspecified (4) Choking episode occurring at night: Code(s): R09.89 - Other specified symptoms and signs involving the circulatory and respiratory systems Category: Medical Plan Severe MARIA G AHI is 25 and oxygen Nadirs to <85%, start cpap therapy monitor for compliance [id number] Will send her for overnight pulse oximetry with and without the cpap, once established on therapy. Labs to r/o neuropathy/ RLS f/u in 3months Orders: Orders Vitamin D 25-OH Total Today R53.83 - Other fatigue, R79.89 - Other specified abnormal findings of blood chemistry Vitamin B6 Today R53.83 - Other fatigue, R79.89 - Other specified abnormal findings of blood chemistry Vitamin B12 Today R53.83 - Other fatigue, R79.89 - Other specified abnormal findings of blood chemistry TSH reflex Free T4 Today R53.83 - Other fatigue, R79.89 - Other specified abnormal findings of blood chemistry Complete Blood Count no Diff Today R53.83 - Other fatigue, R79.89 - Other specified abnormal findings of blood chemistry Ferritin Today R53.83 - Other fatigue, R79.89 - Other specified abnormal findings of blood chemistry Vitamin B12 and Folate Today R53.83 - Other fatigue, R79.89 - Other specified abnormal findings of blood chemistry Vitamin B1 Today R53.83 - Other fatigue, R79.89 - Other specified abnormal findings of blood chemistry Comprehensive Met. Panel Today R53.83 - Other fatigue, R79.89 - Other specified abnormal findings of blood chemistry IRON PROFILE Today G47.9 - Sleep disorder, unspecified, R53.83 - Other fatigue, R79.89 - Other specified abnormal findings of blood chemistry Homocysteine Today G47.9 - Sleep disorder, unspecified, R53.83 - Other fatigue, R79.89 - Other specified abnormal findings of blood chemistry Magnesium Today R53.83 - Other fatigue, R79.89 - Other specified abnormal findings of blood chemistry Methylmalonic Acid Today G47.9 - Sleep disorder, unspecified, R53.83 - Other fatigue, R79.89 - Other specified abnormal findings of blood chemistry Patient Instructions: Sleep Hygiene provided: set a scheduled bedtime and wake time to help regulate the circadian rhythm and balance the release of pituitary hormones. Sleep in a dark room, temperatures below 68 degrees, and no devices n bed. Limit caffeinated products 6 hours prior to bed, and limit fluids 2-4 hours prior to bed. Gentle night yoga, diffusing essential oils, and playing soft music can be relaxing. Coding Level of Care Code New Pt Level 4 (19774) Diagnoses Obstructive sleep apnea syndrome G47.33 Sleep apnea type: obstructive High serum vitamin B12 R79.89 Chronic fatigue R53.82 Fatigue type: chronic, unspecified Choking episode occurring at night R09.89 Sleep Questionnaire Difficulty falling asleep: Yes Difficulty staying asleep?: No Snoring: Yes Witnessed apneas: Yes Gasping arousals: Yes Nocturia: No GERD: Yes Vivid dreams: Yes Acting out dreams: No Abnormal behavior in sleep: Yes Abnormal movements in sleep: No Morning headaches: Yes Excessive daytime sleepiness: Yes Daytime naps: Yes Restless legs: Yes Hallucinations: No Sleep paralysis: No Drop attacks: No Sleep Study: Yes CPAP: No
[2025-01-17 13:34] VITALS: BP 128/70; PULSE 68; O2SAT 96; BMI 27.3
== END 2025-01-17 14:50 | disposition home or self-care (01) ==
LOC: HO.HSMS 13:10
PROVIDERS: Visit Provider Physician Assistant Medical
DX: G47.33 Obstructive sleep apnea (adult) (pediatric) (principal); R79.89 Other specified abnormal findings of blood chemistry; R53.82 Chronic fatigue, unspecified; R09.89 Other specified symptoms and signs involving the circulatory and respiratory systems
CPT/HCPCS: 99204

== ENCOUNTER → 2025-01-17 13:09 | Outpatient (BNVA) | payer MEDICARE, MEDICAID, SELFPAY | PROVIDERS: Visit Provider Physician Assistant Medical | DX: G47.33 Obstructive sleep apnea (adult) (pediatric) (principal); R79.89 Other specified abnormal findings of blood chemistry; R53.82 Chronic fatigue, unspecified; R09.89 Other specified symptoms and signs involving the circulatory and respiratory systems | CPT/HCPCS: 99202 ==

== ENCOUNTER 2025-01-29 08:44 | Outpatient (REF) | payer MEDICARE, MEDICAID, SELFPAY ==
--- NOTE | ~2025-01-29 | US_ITS ---
EXAMINATION: US ABDOMEN COMPLETE CLINICAL INFORMATION: Right upper quadrant abdominal pain. Elevated liver function test/ transaminases. COMPARISON: None available. TECHNIQUE: Real-time ultrasound of the abdomen using grayscale technique. FINDINGS: PANCREAS: No peripancreatic fluid collections. ABDOMINAL AORTA: The proximal, mid, and distal segments are normal in caliber. INFERIOR VENA CAVA: Visualized portions are normal. LIVER: Liver measures 14 cm. There is a subtle nodular surface. Coarse echotexture. There is a 2.7 cm partially calcified hypoechoic lesion, right hepatic lobe. No intrahepatic biliary ductal dilatation. GALLBLADDER: Fluid-filled without pericholecystic fluid collection or gallbladder wall thickening. Nondistended. COMMON BILE DUCT: 3 mm. RIGHT KIDNEY: 10 cm. Normal echotexture. Normal renal cortical thickness. No hydronephrosis. There is a 3.8 cm lobulated hyperechoic lesion/mass in the medullary into the renal cortex of the midportion of the kidney. LEFT KIDNEY: 10 cm. Normal echotexture. Normal renal cortical thickness. No hydronephrosis. No solid or cystic lesion. SPLEEN: 9 cm. No focal mass.. FREE FLUID: None. US/US abdomen complete IMPRESSION: Concerning hepatocellular disease. 2.7 cm complex lesion/mass right hepatic lobe. Recommend dedicated dynamic enhanced MRI liver versus triple phase liver CT. 3.8 cm mass, right kidney. Recommend dedicated renal mass protocol CT versus MRI. No hydronephrosis. No ascites. No cholelithiasis or gross choledocholithiasis. Electronically signed by: John Edmond MD 01/29/2025 11:21 AM EDT
== END 2025-01-29 08:45 | disposition home or self-care (01) ==
LOC: HO.US 08:44
DX: R79.89 Other specified abnormal findings of blood chemistry (principal); R10.11 Right upper quadrant pain
CPT/HCPCS: 76700

== ENCOUNTER → 2025-01-29 08:50 | Outpatient (BNV) | payer MEDICARE, MEDICAID, SELFPAY | PROVIDERS: Visit Provider Radiology Diagnostic Radiology | DX: K76.89 Other specified diseases of liver (principal) | CPT/HCPCS: 76700 ==

== ENCOUNTER → 2025-02-11 10:39 | Outpatient (BNV) | payer MEDICARE, MEDICAID, SELFPAY | PROVIDERS: Visit Provider Radiology Diagnostic Radiology | DX: K76.89 Other specified diseases of liver (principal) | CPT/HCPCS: 74183 ==

== ENCOUNTER 2025-02-11 10:40 | Outpatient (REF) | payer MEDICARE, MEDICAID, SELFPAY ==
--- NOTE | ~2025-02-11 | MR_ITS ---
EXAMINATION: MR ABDOMEN WITHOUT AND WITH CONTRAST CLINICAL INFORMATION: 28.89. Other specified disorders of kidney and ureter. Concerning hepatocellular disease. COMPARISON: Correlated to ultrasound dated January 29, 2025 TECHNIQUE: MR abdomen was performed without and with use of 6.0 mL intravenous (Gadavist) gadolinium contrast. Postcontrast images are performed in multiphase dynamic sequences. Imaging was performed in 3 planes. No reported immediate complications. FINDINGS: LUNG BASES: No enhancing mass. LIVER, GALLBLADDER, AND BILIARY TREE: Liver measures 15 cm. There is a 30 mm peripheral discontinuous enhancing lesion without restricted diffusion in the periphery of the right lower hepatic lobe. There is a 3 mm nonenhancing fluid signal characteristic lesion in the anterior inferior left hepatic lobe just medial to the falciform ligament. There is a 5 mm nonenhancing fluid signal characteristic lesion in the right hepatic lobe. There is no drop off signal within the hepatic parenchyma. Gallbladder is nondistended. No pericholecystic fluid collection or gallbladder wall thickening. No gross intraluminal signal abnormality. Common bile duct measures 2 mm. No intrahepatic biliary ductal dilatation. PANCREAS: No focal mass. No main pancreatic ductal dilatation. No peripancreatic fluid collection. SPLEEN: 9 cm. No focal mass. ADRENAL GLANDS: No nodular lesions. KIDNEYS AND URETERS: Right kidney: There is a 35 mm lobulated intrinsic hyperintense T1, nonenhancing no restricted diffusion signal lesion mass at the corticomedullary junction and parapelvic of the midportion/lower pole junction with homogeneous decreased signal in the fat-sat sequence. Normal enhancement pattern of the renal cortex. No hydronephrosis. No enhancing mass. Main vessels are patent. No perinephric fluid collections or masses. Left kidney: No hydronephrosis. No enhancing mass. Normal enhancement pattern of the renal parenchyma. GASTROINTESTINAL TRACT: Hiatal hernia, moderate size. Abundant stool, large intestine. No ascites. No intestinal obstruction pattern. ABDOMINAL WALL: Small fat-containing umbilical hernia. LYMPH NODES: No mesenteric or retroperitoneal lymphadenopathy. VASCULAR: No aneurysm or dissection, abdominal aorta. Normal flow-void signal within the main vessels. 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 MR/MR abdomen wo/w con IMPRESSION: 30 mm lesion, right hepatic lobe likely hemangioma. Small subcentimeter cysts, hepatic. 35mm, nonenhancing fat signal characteristic lesion, right kidney. Likely lipoma. Electronically signed by: John Edmond MD 02/11/2025 12:17 PM EDT
== END 2025-02-11 10:41 | disposition home or self-care (01) ==
LOC: HO.MRI 10:40
DX: N28.89 Other specified disorders of kidney and ureter (principal); R16.0 Hepatomegaly, not elsewhere classified
CPT/HCPCS: 74183; A9585

== ENCOUNTER 2025-02-19 11:31 | Outpatient (AMB) | payer MEDICARE, MEDICAID, SELFPAY ==
[2025-02-19 11:40] VITALS: BP 138/68; PULSE 63; O2SAT 96; BMI 26.7
--- NOTE | 2025-02-19 11:40 | HO.NEPHOV ---
Vital Signs 02/19/25 11:40 Height 4 ft 11 in Weight 132 lb BMI 26.7 BP 138/68 Blood Pressure Location Lt brachial Position Sitting Pulse 63 Pulse Source Pulse Oximeter Pulse Oximetry (%) 96 Oxygen Delivery Method Room Air Intake Visit Reasons: INP:Other specified disorders of kidney and ureter Network Operations Center Technician Required: No Network Operations Center Technician Services: Network Operations Center Technician Offered & Declined (Son in law will translate) Accompanied by: son in law Allergies Iodinated Contrast Media Allergy (Intermediate, Verified 02/19/25 11:43) Itching iodine Allergy (Intermediate, Verified 02/19/25 11:43) Itching latex Allergy (Intermediate, Verified 02/19/25 11:43) Hives Sulfa (Sulfonamide Antibiotics) Allergy (Intermediate, Verified 02/19/25 11:43) Hives Medication List - Last Reconciled 02/19/25 by Nabor Lindo MD albuterol sulfate 90 mcg/actuation 1 puff inhalation Q4-6H PRN alendronate 35 mg PO QWEEK alirocumab (Praluent Pen) 75 mg subcut Q14D amlodipine 10 mg PO DAILY aspirin 81 mg PO DAILY clonazepam 1 mg PO TID PRN CPAP (CPAP Machine/Device) As directed; CPAP with auto pap and pressure setting og 6-20cm ezetimibe (Zetia) 10 mg PO DAILY famotidine 40 mg PO DAILY ipratropium bromide 17 mcg/actuation (Atrovent HFA) 1 puff inhalation QID PRN lisinopril 40 mg PO DAILY montelukast 10 mg PO DAILY propranolol 40 mg PO DAILY sertraline 100 mg PO BID sucralfate 1 g PO BID sumatriptan succinate take 1 tab at onset of headache; if no relief may repeat 1 tab after at least 2 hrs; max = 4 tabs/24 hr PO 1 month MDD 200mg Synthroid (levothyroxine) 75 mcg PO DAILY NS trazodone 100 mg PO BEDTIME HPI Comments Details: - The patient is a 69-year-old female referred for a renal mass. - Referred for renal mass evaluation; history of sand-like kidney stones three years ago. - Frequent urination, no dysuria or hematuria. - Hypertension managed with lisinopril and Norvasc for six to seven years. - Asthma, and recently diagnosed with MARIA G, awaiting CPAP equipment. 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 - History of oral contraceptive use. - Iodine allergy causing rash. [facility] Surgical History History of YAG laser iridotomy of both eyes History of hysterectomy History of unilateral oophorectomy History of arthroplasty of left shoulder History of 3 sections Social History Housing: House Alcohol intake: never Patient Tobacco Use Status: Never used Tobacco e-Cigarette/Vaping Use: Never Used Second Hand Smoke Exposure: No service: No Current occupational status: unemployed Cognitive needs: No Hearing needs: No Vision needs: Yes (Glasses) Review of Systems Const Denies fever(s) and Denies weight loss Card Denies chest pain Resp Denies cough and Denies hemoptysis GI Denies abdominal pain, Denies diarrhea and Denies nausea Musc Denies back pain Neuro Denies focal weakness Physical Exam Vital Signs: Last Vital Signs Pulse 63 02/19/25 11:40 BP 138/68 02/19/25 11:40 Pulse Ox 96 02/19/25 11:40 Oxygen Delivery Method Room Air 02/19/25 11:40 BMI result Body Mass Index 26.7 Comfortable Neck supple no JVD. Lungs entry equal no rales. Heart S1-S2 heard no gallop or rub. Abdomen soft nontender. Neuro alert awake oriented. No asterixis. Extremities no edema. Assessment & Plan Assessment & Plan (1) Renal mass: Code(s): N28.89 - Other specified disorders of kidney and ureter Category: Medical Plan 1. Renal Mass - MRI shows 3.5 cm fat-filled tissue, probably lipoma Monitor Q 6 -12 monthsChekc urine studies including cytology - Monitor with urine tests and imaging every 6-12 months and will reevaluate for referral if needed 2. Hypertension - Controlled with lisinopril and Norvasc. 3. Liver Hemangioma - Benign lesion, Await GI appoinment 4. Asthma / MARIA G - Awaiting CPAP equipment for management. Orders: Orders Total Protein Urine Random Today N28.89 - Other specified disorders of kidney and ureter Basic Metabolic Panel Today N28.89 - Other specified disorders of kidney and ureter Creatinine Urine Today N28.89 - Other specified disorders of kidney and ureter UA and rflx microscopic Today N28.89 - Other specified disorders of kidney and ureter Urine Cytology Today N28.89 - Other specified disorders of kidney and ureter, R31.9 - Hematuria, unspecified US renal BI 6 Months N28.89 - Other specified disorders of kidney and ureter Patient Instructions: - Continue current medications for hypertension. - Follow up in 6 months for urine tests and imaging. - Monitor for any new symptoms or changes in condition. Coding Level of Care Code New Pt Level 4 (36968) Diagnoses Renal mass N28.89
== END 2025-02-19 12:06 | disposition home or self-care (01) ==
LOC: HO.HKAS 11:32
PROVIDERS: Visit Provider Internal Medicine Hypertension Specialist
DX: N28.89 Other specified disorders of kidney and ureter (principal)
CPT/HCPCS: 99204

== ENCOUNTER → 2025-02-19 11:31 | Outpatient (BNVA) | payer MEDICARE, MEDICAID, SELFPAY | PROVIDERS: Visit Provider Internal Medicine Hypertension Specialist | DX: I10 Essential (primary) hypertension (principal); N28.89 Other specified disorders of kidney and ureter; J45.909 Unspecified asthma, uncomplicated; G47.33 Obstructive sleep apnea (adult) (pediatric); D18.01 Hemangioma of skin and subcutaneous tissue | CPT/HCPCS: 99202 ==

== ENCOUNTER 2025-02-20 08:20 | Outpatient (REF) | payer MEDICARE, MEDICAID, SELFPAY | END 2025-02-20 08:21 | disposition home or self-care (01) | LOC: HO.HOSX 08:20 | PROVIDERS: Visit Provider Physician Assistant | DX: Z13.89 Encounter for screening for other disorder (principal) ==

== ENCOUNTER 2025-02-27 09:51 | Outpatient (REF) | payer MEDICARE, MEDICAID, SELFPAY ==
[2025-02-27 11:14] LABS: Alanine Aminotransferase 34 U/L (0-31); Albumin Level 4.7 g/dL (3.5-5.0); Alkaline Phosphatase 113 U/L (39-117); Anion Gap 9 (12-20); Aspartate Amino Transferase 33 U/L (5-31); Blood Urea Nitrogen 17 mg/dL (9-16); Calcium 9.4 mg/dL (8.4-10.2); Carbon Dioxide 31 mmol/L (22-29); Chloride 107 mmol/L (96-108); Cholesterol 255 mg/dL (<200); Estimated Glomerular Filt Rate > 60; HDL Cholesterol 75 mg/dL (>40); Iron 48 mcg/dL (30-160); Lipase 33 U/L (8-78); Percent Iron Saturation 14 % (15-50); Potassium 4.6 mmol/L (3.3-5.1); Sodium 142 mmol/L (135-145); Total Iron Binding Capacity 347 mcg/dL (228-428); Total Protein 7.5 g/dL (6.5-8.0); Triglycerides 87 mg/dL (<150); Unsaturated Iron Binding 299 ug/dL
[2025-02-27 11:19] LABS: Amylase 278 U/L (28-100)
[2025-02-27 11:34] LABS: HBS Num1 1.28 mIU/mL (0-7.99); HBc Num1 0.17 S/CO (0.00-0.79); HBsAGNum1 0.30 S/CO (0.00-0.99); Hepatitis B Surface Antigen Negative (Negative); ~HepC Num1 0.09 S/CO (0.00-0.79); ~Hepatitis B Surface Antibody NONREACTIVE (Nonreactive); ~Hepatitis C Antibody Nonreactive (Nonreactive)
[2025-02-27 11:46] LABS: Ferritin 63 ng/mL (10-250)
[2025-02-27 11:51] LABS: Folate 13.4 ng/mL (> or = 4.0); Vitamin B12 1908 pg/mL (200-900)
[2025-02-27 12:11] LABS: Appearance Urine Clear; Glucose Urine UA Negative (Negative); PH 6.0 (5.0-9.0); Specific Gravity - Urine 1.020 (1.005-1.025)
[2025-02-27 12:36] LABS: Total Protein Urine Random < 7 mg/dL (<12)
== END 2025-02-27 09:52 | disposition home or self-care (01) ==
LOC: HO.LAB 09:51
PROVIDERS: Absent Provider Internal Medicine Hypertension Specialist; Referring Provider Internal Medicine Endocrinology, Diabetes & Metabolism
DX: Z00.00 Encounter for general adult medical examination without abnormal findings (principal); N28.89 Other specified disorders of kidney and ureter; M81.0 Age-related osteoporosis without current pathological fracture; R16.0 Hepatomegaly, not elsewhere classified; R79.89 Other specified abnormal findings of blood chemistry; E78.00 Pure hypercholesterolemia, unspecified; R31.9 Hematuria, unspecified
CPT/HCPCS: 36415; 80053; 80061; 81003; 82150; 82248; 82570; 82607; 82728; 82746; 83540; 83690; 84100; 84156; 86335; 86704; 86706; 86803; 87340; 88112

== ENCOUNTER 2025-03-07 13:50 | Outpatient (REF) | payer MEDICARE, MEDICAID, SELFPAY ==
[2025-03-07 15:11] LABS: Creatinine, mg/dL 37.97
[2025-03-07 18:21] LABS: Total Volume 24 Hour Urine 1225 mL
[2025-03-10 20:48] LABS: Calcium/Creatinine Ratio 183 mg/g creat (30-275); Creatinine 24Hr Urine 0.50 g/24 h (0.50-2.15)
== END 2025-03-07 13:51 | disposition home or self-care (01) ==
LOC: HO.LNP 13:50
PROVIDERS: Visit Provider Internal Medicine Endocrinology, Diabetes & Metabolism
DX: M81.0 Age-related osteoporosis without current pathological fracture (principal)
CPT/HCPCS: 82340; 82570

== ENCOUNTER 2025-03-18 15:57 | Outpatient (AMB) | payer MEDICARE, MEDICAID, SELFPAY ==
[2025-03-18 16:01] VITALS: BP 130/70; PULSE 71; TEMP 36.3; O2SAT 98; BMI 27.4
--- NOTE | 2025-03-18 16:01 | MHC.PC.OV ---
Vital Signs 03/18/25 16:01 Height 4 ft 11 in Weight 135 lb 8 oz BMI 27.4 BP 130/70 Blood Pressure Location Lt brachial Position Sitting Pulse 71 Pulse Source Pulse Oximeter Temp 97.3 F Temp Source Temporal Artery Scan Pulse Oximetry (%) 98 Oxygen Delivery Method Room Air Intake Visit Reasons: 3 mo f/u Coating Inspector Required: Yes Coating Inspector Language: Sami Accompanied by: Son Allergies Iodinated Contrast Media Allergy (Intermediate, Verified 03/18/25 16:02) Itching iodine Allergy (Intermediate, Verified 03/18/25 16:02) Itching latex Allergy (Intermediate, Verified 03/18/25 16:02) Hives Sulfa (Sulfonamide Antibiotics) Allergy (Intermediate, Verified 03/18/25 16:02) Hives Medication List - Last Reconciled 03/18/25 by Angela Justin PA-C albuterol sulfate 90 mcg/actuation 1 puff inhalation Q4-6H PRN alendronate 35 mg PO QWEEK alirocumab (Praluent Pen) 75 mg subcut Q14D amlodipine 10 mg PO DAILY aspirin 81 mg PO DAILY clonazepam 1 mg PO TID PRN CPAP (CPAP Machine/Device) As directed; CPAP with auto pap and pressure setting og 6-20cm ezetimibe (Zetia) 10 mg PO DAILY famotidine 40 mg PO DAILY ipratropium bromide 17 mcg/actuation (Atrovent HFA) 1 puff inhalation QID PRN lisinopril 40 mg PO DAILY montelukast 10 mg PO DAILY propranolol 40 mg PO DAILY sertraline 100 mg PO BID sucralfate 5 mL PO QID sumatriptan succinate take 1 tab at onset of headache; if no relief may repeat 1 tab after at least 2 hrs; max = 4 tabs/24 hr PO 1 month MDD 200mg Synthroid (levothyroxine) 75 mcg PO DAILY NS trazodone 100 mg PO BEDTIME Tobacco use date assessed: 03/18/25 Last assessed Fall Risk: 03/18/25 Dental Screening Dental Screen Date: 03/18/25 Did you have a dental visit in the last 12 months?: No Did you have a dental problem in the last 6 months where you did not have access to dental care?: No Was dental information given to patient?: No HPI 3 mo f/u HPI Details 69 year old female with hypertension, fibromyalgia, asthma, osteoporosis, anxiety, hypothyroid last seen 11/2024 coming in for follow up. In review of the notes, patient was seen by nephrology 02/2025 for renal mass recommending urine studies with cytology and imaging every 6-12 months. Seen by sleep medicine 01/2025 started on CPAP therapy for severe MARIA G and follow up in 3 months. Seen by [facility] 12/2024 plan for PT with consideration for MRI if symptoms do not improve and follow up in 6 weeks. accounts payable specialist Kami [id number] used for the duration of this visit. this pain has been going on for many years - she is currently on Zetia - she was on statins in the past she could not take Lipitor due to abdominal pain and has taken Simvastatin which did not have any improvement - she required injectable for HLD management - runny nose for the last 3 days - no other symptoms - she also mentions the left ear she has been hearing a noise which sounds like a pulsatile tinnitus - this does happen all the time only in the left ear - She is not listening to anything I am saying like at all this is so frustrating I am going to lose my mind and now the catalyst supervisor is interrupting like WTF is going on - Presenting for management of multiple chronic conditions and review of labs. She reports a long-standing, constant, and strong pain in her right upper quadrant. An MRI revealed a liver mass consistent with a hemangioma, and she is pending a follow-up appointment with a electronic bench technician. Regarding hypercholesterolemia, the patient is currently not taking her Praluent pen due to insurance coverage issues.Her previous treatments in [place] included Lipitor, which caused pain, and simvastatin, which was ineffective, leading to the initiation of injectable therapy. The patient describes herself as a chronic asthmatic whose condition was previously controlled by a cracking machine operator in [place] but became uncontrolled after she stopped the treatment. She reports using her albuterol pump multiple times a day due to her symptoms and has run out of her albuterol vials for nebulizer therapy. She also reports a long-standing history of possibly pulsatile tinnitus, but unclear based on her description. This has been going on for over 5 years and has not had any change in symptoms. She finds this symptoms distressing in his looking for referral to ear nose and throat. [facility] Surgical History History of YAG laser iridotomy of both eyes History of hysterectomy History of unilateral oophorectomy History of arthroplasty of left shoulder History of 3 sections Social History Housing: House Alcohol intake: never Patient Tobacco Use Status: Never used Tobacco Tobacco use type: Cigarette e-Cigarette/Vaping Use: Never Used Second Hand Smoke Exposure: No service: No Current occupational status: unemployed Cognitive needs: No Hearing needs: No Vision needs: Yes (Glasses) Questionnaire PHQ-9 Over the last 2 weeks, how often have you been bothered by any of the following problems? 1. Little interest or pleasure in doing things: more than half the days 2. Feeling down, depressed, or hopeless: nearly every day 3. Trouble falling or staying asleep, or sleeping too much: nearly every day 4. Feeling tired or having little energy: nearly every day 5. Poor appetite or overeating: not at all 6. Feeling bad about yourself - or that you are a failure or have let yourself or your family down: several days 7. Trouble concentrating on things, such as reading the newspaper or watching television: several days 8. Moving or speaking so slowly that other people could have noticed. Or the opposite - being so fidgety or restless that you have been moving around a lot more than usual: several days 9. Thoughts that you would be better off or of hurting yourself in some way: not at all Total score: 14 Depression Screening Interpretation: Positive Depression Screening Follow-up: Existing condition and In treatment Depression Screening Done: Yes Source: Developed by Drs. Oseas Barrera, Shelia Malagon, Angelo Quintana and colleagues, with an educational jacqueline from [employer]. Thrive Questionnaire Date Thrive assessed: 10/17/24 I am a: Patient What is your living situation today?: I do not have a steady places to live I am temporarily staying with others Within the past 12 months, did the food you bought not last and you didn't have the money to get more?: Sometimes True Within the past 12 months, did you worry whether your food would run out before you got money to buy more?: Sometimes True Do you have trouble paying for medicines?: No Do you have trouble getting transportation to medical appointments?: Yes Do you have trouble paying your heating and electricity bill?: Yes Do you have trouble taking care of your child, family member or friend?: No Do you have trouble with day-to-day activities such as bathing, preparing meals, shopping, managing finances, etc.?: I choose not to answer this question Are you currently unemployed and looking for a job?: No Are you interested in more education?: No Currently or been in a relationship where the following occur: No concerns reported THRIVE Score: 5 AUDIT C Alcohol Use Questionnaire (AUDIT-C) 1. How often do you have a drink containing alcohol?: Never 3. How often do you have six or more drinks on one occasion?: Never Total Score: 0 RESHMA-7 AMB Questionnaire RESHMA-7 Date RESHMA - 7 assessed: 03/18/25 Feeling nervous, anxious, or on edge: 3 = Nearly every day Not being able to stop or control worryin = Nearly every day Worrying too much about different things: 3 = Nearly every day Trouble relaxin = Nearly every day Being so restless that it is hard to sit still: 3 = Nearly every day Becoming easily annoyed or irritable: 3 = Nearly every day Feeling afraid as if something awful might happen: 3 = Nearly every day Total RESHMA-7 score (0-4 normal; 5-9 mild; 10-14 moderate; 15-21 severe): 21 Source: Developed by Drs. Oseas Barrera, Shelia Malagon, Angelo Quintana and colleagues, with an educational jacqueline from [employer]. Review of Systems Const Denies body aches, Denies chills, Denies fever(s) and Denies headache(s) Eyes Reports no additional complaints ENT Denies dizziness, Denies otalgia, Denies headache(s) and Reports tinnitus Card Denies chest pain, Denies lightheadedness, Denies dyspnea and Reports dyspnea on exertion Resp Denies dyspnea and Reports dyspnea on exertion GI Denies abdominal pain, Denies nausea and Denies vomiting Reports no additional complaints Musc Reports no additional complaints and Denies abnormal gait Skin/Breast Reports system reviewed and no additional complaints, except as documented Neuro Denies abnormal gait, Denies dizziness and Denies headache(s) Psych Reports no additional complaints Physical exam (Primary Care) Vital Signs: Last Vital Signs Temp 97.3 F 03/18/25 16:01 Pulse 71 03/18/25 16:01 BP 130/70 03/18/25 16:01 Pulse Ox 98 03/18/25 16:01 Oxygen Delivery Method Room Air 03/18/25 16:01 BMI result Body Mass Index 27.4 Tobacco/Smoking Status: Tobacco use Status Tobacco use date assessed 03/18/25 03/18/25 16:03 Patient Tobacco Use Status Never used Tobacco 03/18/25 16:03 Tobacco use type Cigarette 03/18/25 16:03 e-Cigarette/Vaping Use Never Used 03/18/25 16:03 PHQ-9: PHQ-9 Score PHQ-9: Total score 14 03/18/25 17:05 Depression Screening Interpretation: Positive Depression Screening Follow-up: Existing condition and In treatment Thrive Assessment: Date of Thrive Assessment Date Thrive assessed 10/17/24 03/18/25 16:03 Currently or been in a relationship where the following occur: No concerns reported Const General: cooperative, healthy appearing, comfortable and no acute distress Orientation/consciousness: patient oriented x3 HENMT Head: Yes normocephalic Ears: hearing grossly normal bilaterally, TM's normal bilaterally and EAC's normal General nose exam: Normal external nose present Eyes General: appearance normal, both eyes and all related structures Conjunctivae: conjunctivae normal Neck Neck: Yes full ROM and Yes no lymphadenopathy Resp Effort & Inspection: normal respiratory effort Auscultation: clear to auscultation bilaterally, no crackles, no rales, no rhonchi and no wheezes Cardio Rate: regular rate Rhythm: regular rhythm Skin General skin exam: no rashes or lesions noted Neuro General: patient oriented x3 Gait exam (Neuro): Normal gait present Extrem General: Yes normal to inspection, Yes full ROM and No edema Psych Affect: normal affect Attitude: cooperative Insight: Good insight present (Psych) Judgement: Good judgement present (Psych) Coding Level of Care Code Est Pt Level 4 (55612) Diagnoses Hypertension I10 Osteoporosis M81.0 Liver mass R16.0 Renal mass N28.89 Asthma J45.909 Obstructive sleep apnea syndrome G47.33 Sleep apnea type: obstructive Mid back pain M54.9 Hypercholesterolemia E78.00 Tinnitus H93.19 RUQ discomfort R10.11 Assessment & Plan Assessment & Plan (1) Hypertension: Code(s): I10 - Essential (primary) hypertension Category: Medical Plan: Continue on current blood pressure medication. Avoid salt intake and encourage healthy diet and regular exercise. (2) Osteoporosis: Code(s): M81.0 - Age-related osteoporosis without current pathological fracture Category: Medical Plan: Continue to follow with Endocrinology. (3) Liver mass: Code(s): R16.0 - Hepatomegaly, not elsewhere classified Category: Medical Plan: awaiting GI appointment. (4) Renal mass: Code(s): N28.89 - Other specified disorders of kidney and ureter Category: Medical Plan: She will continue to follow with nephrology for lipoma. She has repeat imaging in 6 months and plan for additional kidney and urine studies as ordered by nephrology. (5) Asthma: Code(s): J45.909 - Unspecified asthma, uncomplicated Category: Medical Plan: Asthma not currently controlled on present medications.Avoid triggers such as allergies. Awaiting Pulmonology appointment. Plan to add Breo to be used daily for asthma management. (6) Sleep apnea: Comment: mod-severe 12/2024 Code(s): G47.30 - Sleep apnea, unspecified Category: Medical Qualifiers: Sleep apnea type: obstructive Qualified Code(s): G47.33 - Obstructive sleep apnea (adult) (pediatric) Plan: Uses CPAP faithfully at least 4 hours a night and benefits from this therapy. Continue to follow with sleep medicine. (7) Mid back pain: Code(s): M54.9 - Dorsalgia, unspecified Category: Medical Plan: Continue to follow with [facility] and undergoing PT at this time. Awaiting follow up with their office. (8) Hypercholesterolemia: Code(s): E78.00 - Pure hypercholesterolemia, unspecified Category: Medical Plan: Avoid foods that are high in cholesterol such as red meat, fried foods, eggs and baked goods. Triglyceride goal of less than 150 and LDL goal of less than 100. She has been having issues obtaining the Praluent. Per patient report she has tried simvastatin and Lipitor in the past which have either caused side effects or not has been control of her cholesterol levels. She was started on Praluent pen by her last PCP and noticed good improvement with her LDL. She would benefit from this medication again and plan to obtain additional prior authorization from her insurance. (9) Tinnitus: Code(s): H93.19 - Tinnitus, unspecified ear Category: Medical Plan: The patient complains of long-standing, bothersome possibly pulsatile tinnitus but unclear. While the ear exam was normal, a referral will be placed for a hearing test to evaluate for hearing loss as a potential cause. A referral to an ENT specialist will also be placed per the patient's request. (10) RUQ discomfort: Code(s): R10.11 - Right upper quadrant pain Category: Medical Plan: The patient's chronic right upper quadrant pain is attributed to a known liver mass, identified on a prior MRI as a hemangioma. A referral to a GI specialist is pending. The GI specialist's phone number was provided to the patient, and a message was sent to their office to request a call back to schedule an appointment. Plan This note was constructed using voice recognition software. While every effort has been made to ensure accuracy and auto suspension and steering mechanic, still areas may have been included sometimes these areas may affect the content or meeting of the given symptoms. Total time spent caring for the patient today was 40 minutes. This includes time spent before the visit reviewing the chart, time spent during the visit, and time spent after the visit and documentation. Patient was informed and verbally consented to the use of an ambient scribe for clinic note documentation during this visit. Orders: Referrals Speech and Hearing Referral H93.19 - Tinnitus, unspecified ear Ear/Nose/Throat Referral H93.19 - Tinnitus, unspecified ear Medications: New albuterol sulfate 2.5 mg (3 mL) inhalation Q6H 75 mL 0RF fluticasone furoate-vilanterol 100-25 mcg/dose (Breo Ellipta) 1 inh inhalation DAILY 60 ea 0RF loratadine (Allergy Relief (loratadine)) 10 mg PO DAILY 90 tabs 1RF sucralfate 1 g PO QIDACHS 90 tabs 0RF Refilled albuterol sulfate 90 mcg/actuation 1 puff inhalation Q4-6H PRN 8.5 grams 0RF bronchospasm
== END 2025-03-18 17:09 | disposition home or self-care (01) ==
LOC: HO.HMCH 15:58
DX: I10 Essential (primary) hypertension (principal); M81.0 Age-related osteoporosis without current pathological fracture; R16.0 Hepatomegaly, not elsewhere classified; N28.89 Other specified disorders of kidney and ureter; J45.909 Unspecified asthma, uncomplicated; G47.33 Obstructive sleep apnea (adult) (pediatric); M54.9 Dorsalgia, unspecified; E78.00 Pure hypercholesterolemia, unspecified; H93.19 Tinnitus, unspecified ear; R10.11 Right upper quadrant pain

== ENCOUNTER → 2025-03-18 15:57 | Outpatient (BNVA) | payer MEDICARE, MEDICAID, SELFPAY | DX: I10 Essential (primary) hypertension (principal); M81.0 Age-related osteoporosis without current pathological fracture; R16.0 Hepatomegaly, not elsewhere classified; N28.89 Other specified disorders of kidney and ureter; J45.909 Unspecified asthma, uncomplicated; G47.33 Obstructive sleep apnea (adult) (pediatric); M54.9 Dorsalgia, unspecified; E78.00 Pure hypercholesterolemia, unspecified; H93.19 Tinnitus, unspecified ear; R10.11 Right upper quadrant pain | CPT/HCPCS: 99212 ==

== ENCOUNTER 2025-04-07 13:32 | Outpatient (AMB) | payer MEDICARE, MEDICAID, SELFPAY ==
[2025-04-07 13:36] VITALS: BP 150/66; PULSE 75; BMI 27.2
--- NOTE | 2025-04-07 13:36 | A.OFFVIS_ITS ---
Vital Signs 04/07/25 13:36 Height 4 ft 11 in Weight 134 lb 7.712 oz BMI 27.2 BP 150/66 H Blood Pressure Location Rt brachial Position Sitting Pulse 75 Pulse Source Pulse Oximeter Oxygen Delivery Method Room Air Intake Visit Reasons: Age related osteoporosis Intake Note: Patient present today for Osteoporosis follow up. Bakery Worker Conveyor Line Required: Yes Bakery Worker Conveyor Line Language: Laser Specialist Services: Bakery Worker Conveyor Line Present Bakery Worker Conveyor Line [facility] [place] Accompanied by: Self / Same As Patient Allergies Iodinated Contrast Media Allergy (Intermediate, Verified 03/18/25 16:02) Itching iodine Allergy (Intermediate, Verified 03/18/25 16:02) Itching latex Allergy (Intermediate, Verified 03/18/25 16:02) Hives Sulfa (Sulfonamide Antibiotics) Allergy (Intermediate, Verified 03/18/25 16:02) Hives Medication List - Last Reconciled 04/07/25 by Oseas Alejandro MD albuterol sulfate 90 mcg/actuation 1 puff inhalation Q4-6H PRN albuterol sulfate 2.5 mg (3 mL) inhalation Q6H alendronate 35 mg PO QWEEK alirocumab (Praluent Pen) 75 mg subcut Q14D amlodipine 10 mg PO DAILY aspirin 81 mg PO DAILY clonazepam 1 mg PO TID PRN CPAP (CPAP Machine/Device) As directed; CPAP with auto pap and pressure setting og 6-20cm ezetimibe (Zetia) 10 mg PO DAILY famotidine 40 mg PO DAILY fluticasone furoate-vilanterol 100-25 mcg/dose (Breo Ellipta) 1 inh inhalation DAILY ipratropium bromide 17 mcg/actuation (Atrovent HFA) 1 puff inhalation QID PRN lisinopril 40 mg PO DAILY loratadine (Allergy Relief (loratadine)) 10 mg PO DAILY montelukast 10 mg PO DAILY propranolol 40 mg PO DAILY sertraline 100 mg PO BID sucralfate 1 g PO QIDACHS sumatriptan succinate take 1 tab at onset of headache; if no relief may repeat 1 tab after at least 2 hrs; max = 4 tabs/24 hr PO 1 month MDD 200mg Synthroid (levothyroxine) 75 mcg PO DAILY NS trazodone 100 mg PO BEDTIME HPI Comments Details: 69 YO Female is seen in cfonsultation at the request of PCP for low bone mass First diagnosed in 1 yr ago .Saw specialist in [place] . Had thyroid nodules Received treatment with alendronate , from 11/2023 to 11/2024 . Tolerated treatment well without complication. No history of pathologic fracture or ONJ. Has few servings of dietary calcium per day in the form of goat cheese, salmon . Not Takes Calcium supplement [] mg daily in divided doses. Not Takes IU of Vitamin D daily. Denies ever using PPI, anticoagulant, antiepileptic or glucocorticoid medi cation. Does weight bearing exercise 7 days per week in the form of elastic rope . 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 UTD on dental cleanings and sees dentist every 6 months. No planned upcoming dental work or extractions. No tabacco use or Heavy ETOH use DXA dated 11/27/24 : FINDINGS: The bone mineral density of the lumbar spine is 0.904 g/cm2, corresponding to a T-score of -2.3, and a Z-score of -0.5. This is indicative of osteopenia. The bone mineral density of the left total hip is 0.775 g/cm2, corresponding to a T-score of -1.8, and a Z-score of -0.3. This is indicative of osteopenia. The bone mineral density of the left femoral neck is 0.740 g/cm2, corresponding to a T-score of -2.1, and a Z-score of -.4. This is indicative of osteopenia. FRACTURE RISK: The FRAX index suggests a risk of major osteoporotic fracture of 11.8%, and of hip fracture 2.9%. MM/XR DEXA axial skeleton IMPRESSION: Based on bone mineral density, and according to World Health Organization (WHO) criteria, the diagno Labs: [facility] History History of YAG laser iridotomy of both eyes History of hysterectomy History of unilateral oophorectomy History of arthroplasty of left shoulder History of 3 sections Social History Housing: House Alcohol intake: never Patient Tobacco Use Status: Never used Tobacco Tobacco use type: Cigarette e-Cigarette/Vaping Use: Never Used Second Hand Smoke Exposure: No service: No Current occupational status: unemployed Cognitive needs: No Hearing needs: No Vision needs: Yes (Glasses) Physical Exam Vital Signs: Oxygen Delivery Method Room Air 04/07/25 13:36 Assessment & Plan Assessment & Plan (1) Osteoporosis: Code(s): M81.0 - Age-related osteoporosis without current pathological fracture Category: Medical Plan: This is a 69-year-old female found to have low bone mass with negative secondary workup. Currently off alendronate Plan is to talk to the patient about initiating raloxifene considering strong family history of breast cancer. At this point, she is not interested in taking the raloxifene. She will be returned to the care of her primary care provider can check a bone density in about 2 years' time if it declines to osteoporotic range, the patient returned back to endocrinology for discussion of treatment with the patient's primary care provider can reinitiate the alendronate Coding Level of Care Code Est Pt Level 3 (78377) Diagnoses Osteoporosis M81.0
== END 2025-04-07 13:56 | disposition home or self-care (01) ==
LOC: HO.ENCR 13:33
PROVIDERS: Visit Provider Internal Medicine Endocrinology, Diabetes & Metabolism
DX: M81.0 Age-related osteoporosis without current pathological fracture (principal)
CPT/HCPCS: 99213

== ENCOUNTER → 2025-04-07 13:32 | Outpatient (BNVA) | payer MEDICARE, MEDICAID, SELFPAY | PROVIDERS: Visit Provider Internal Medicine Endocrinology, Diabetes & Metabolism | DX: M81.0 Age-related osteoporosis without current pathological fracture (principal) | CPT/HCPCS: 99212 ==

== ENCOUNTER 2025-04-14 11:18 | Outpatient (AMB) | payer MEDICARE, MEDICAID, SELFPAY ==
--- NOTE | 2025-04-14 11:20 | MHC.OFFVIS ---
Vital Signs 04/14/25 11:21 Height 4 ft 11 in Weight 135 lb 9.349 oz BMI 27.4 BP 128/54 L Blood Pressure Location Lt brachial Position Sitting Pulse 87 Pulse Source Pulse Oximeter Pulse Oximetry (%) 99 Oxygen Delivery Method Room Air Intake Visit Reasons: Asthma Podiatrist Required: Yes Podiatrist Language: Tanning Salon Attendant Services: Podiatrist Offered & Declined Podiatrist Name: pt's Son Allergies Iodinated Contrast Media Allergy (Intermediate, Verified 04/14/25 11:27) Itching iodine Allergy (Intermediate, Verified 04/14/25 11:27) Itching latex Allergy (Intermediate, Verified 04/14/25 11:27) Hives Sulfa (Sulfonamide Antibiotics) Allergy (Intermediate, Verified 04/14/25 11:27) Hives HPI HPI Asthma: Details: Hortensia is a pleasant 69-year-old female, former minimal smoker, with underlying asthma, and MARIA G on CPAP managed by sleep medicine. She was referred by PCP for pulmonary evaluation. The patient has had asthma for more than 15 years and has never required intubation or hospitalization due to asthma exacerbations, except for one instance of bronchitis that led to hospitalization. The patient previously saw a store assistant in [place], on Advair and recently prescribed Breo 100 mcg. The patient reports suboptimal control on current regimen, using albuterol almost daily, which provides relief of acute symptoms such as dyspnea, cough and wheezing. The patient has a nebulizer at home but has not used it in the past few weeks, only using it when necessary. The patient has family members with respiratory issues, including the patient's daughters, sister and aunts. She denies any prolonged occupational exposures or h/o recurrent URIs. She reports possible environmental allergies contributing to symptoms, denies recent allergy testing. [facility] Surgical History History of YAG laser iridotomy of both eyes History of hysterectomy History of unilateral oophorectomy History of arthroplasty of left shoulder History of 3 sections Social History Housing: House Alcohol intake: never Patient Tobacco Use Status: Never used Tobacco Tobacco use type: Cigarette e-Cigarette/Vaping Use: Never Used Second Hand Smoke Exposure: No service: No Current occupational status: unemployed Cognitive needs: No Hearing needs: No Vision needs: Yes (Glasses) Review of Systems Const Denies chills, Denies excessive sweating, Denies fever(s), Denies headache(s) and Denies night sweats Eyes Denies dry eyes, Denies irritation and Denies itchy eyes ENT Reports Normal hearing present, Denies headache(s), Denies nasal congestion, Denies nasal discharge, Denies post nasal drip and Denies sore throat Card Denies chest pain, Denies chest pain at rest, Denies chest pain with activity, Denies claudication, Denies leg edema, Denies orthopnea and Denies paroxysmal nocturnal dyspnea Resp Denies chest congestion, Denies excessive phlegm production, Denies pain on inspiration, Denies pain with cough and Denies stridor Musc Denies myalgias Neuro Reports Normal hearing present and Denies headache(s) Endo Denies excessive sweating Marc/Lymph Denies lymphadenopathy Aller/Immun Denies itchy eyes Physical Exam Vital Signs: Last Vital Signs Pulse 87 04/14/25 11:21 BP 128/54 L 04/14/25 11:21 Pulse Ox 99 04/14/25 11:21 Oxygen Delivery Method Room Air 04/14/25 11:21 BMI result Body Mass Index 27.4 Const General: cooperative, healthy appearing, comfortable, no acute distress, well developed and alert Orientation/consciousness: patient oriented x3 Limitations: no limitations HEENT Head: Yes normal to inspection, Yes normocephalic and Yes atraumatic Ears: hearing grossly normal bilaterally and external ears normal Eyes General: appearance normal, both eyes and all related structures Eyelids: Yes eyelids normal Sclerae: sclerae normal EOM: EOMs intact bilaterally Neck Neck: Yes normal visual inspection and Yes no lymphadenopathy Lymphatic: no lymphadenopathy noted Chest Chest palpation & inspection: normal inspection of the chest Resp Effort & Inspection: normal respiratory effort, able to speak in complete sentences, no audible wheezes, no cough, no stridor, not tachypneic, no tripod positioning and no use of accessory muscles Auscultation: clear to auscultation bilaterally Cardio Jugular venous distension: no JVD Rate: regular rate Rhythm: regular rhythm Skin Other: warm, dry General skin exam: no rashes or lesions noted Neuro General: patient oriented x3 Cranial nerves: Yes Normal hearing present Cognition (Neuro): normal cognition Gait exam (Neuro): Normal gait present Extrem General: Yes normal to inspection, Yes capillary refill normal, Yes no clubbing, cyanosis or edema and Yes no pedal edema Psych Appearance: grossly normal and well kempt Speech and movement: Normal speech and movement present and Clear speech present Affect: normal affect Attitude: cooperative Thought process: Normal thought process present Thought content: Normal thought content present Insight: Good insight present (Psych) Judgement: Good judgement present (Psych) Assessment & Plan Assessment & Plan (1) Asthma: Code(s): J45.909 - Unspecified asthma, uncomplicated Category: Medical (2) Environmental allergies: Code(s): Z91.09 - Other allergy status, other than to drugs and biological substances Category: Medical Plan Hortensia reports suboptimal control of respiratory symptoms on current regimen, will increase Breo to 200mcg. Discussed the importance of rinsing the mouth after use to prevent oral side effects. Will also refill nebulized Albuterol to be used PRN. Will send for PFT to assess severity of obstructive defect as well as chest x-ray to evaluate for any underlying parenchymal condition contributing to symptoms. Recommended allergy testing to identify potential environmental triggers. Flonase has been prescribed to manage symptoms, as loratadine was ineffective. All questions were answered and patient is in agreement of plan. Will follow up in 8-10 weeks or sooner if needed. Patient was informed and verbally consented to the use of an ambient scribe. Orders: Orders Immunoglobulin E Today Z91.09 - Other allergy status, other than to drugs and biological substances Complete Blood Count Auto Diff Today Z91.09 - Other allergy status, other than to drugs and biological substances PFT pulmonary function test Today J45.909 - Unspecified asthma, uncomplicated Resp Allergy Profile Region I Today Z91.09 - Other allergy status, other than to drugs and biological substances XR chest 2V Today R06.00 - Dyspnea, unspecified Medications: New fluticasone propionate 50 mcg/actuation (Flonase Allergy Relief) administer into each nostril 1 spray intranasal DAILY 16 grams 3RF fluticasone furoate-vilanterol 200-25 mcg/dose (Breo Ellipta) 1 inh inhalation DAILY 60 ea 3RF Changed From albuterol sulfate 2.5 mg (3 mL) inhalation Q6H 75 mL 0RF J45.909 - Unspecified asthma, uncomplicated To albuterol sulfate 2.5 mg (3 mL) inhalation Q6H PRN 90 mL 3RF shortness of breath or wheezing J45.909 - Unspecified asthma, uncomplicated Discontinued fluticasone furoate-vilanterol 100-25 mcg/dose (Breo Ellipta) Discontinued Reason: Patient Completed Course 1 inh inhalation DAILY 60 ea 0RF Coding Level of Care Code New Pt Level 4 (97582) Diagnoses Asthma J45.909 Environmental allergies Z91.09
[2025-04-14 11:21] VITALS: BP 128/54; PULSE 87; O2SAT 99; BMI 27.4
== END 2025-04-14 11:55 | disposition home or self-care (01) ==
LOC: HO.HPS 11:19
PROVIDERS: Visit Provider Nurse Practitioner Family
DX: J45.909 Unspecified asthma, uncomplicated (principal); Z91.09 Other allergy status, other than to drugs and biological substances
CPT/HCPCS: 99204

== ENCOUNTER 2025-04-14 11:18 | Outpatient (REF) | payer MEDICARE, MEDICAID, SELFPAY ==
--- NOTE | ~2025-04-14 | XR_ITS ---
EXAMINATION: XR CHEST CLINICAL INFORMATION: R06.00 - Dyspnea, unspecified COMPARISON: None available. TECHNIQUE: 2 views of the chest were obtained. FINDINGS: The cardiomediastinal silhouette is within normal limits. The lungs are well expanded. Mild peribronchial thickening in the right lower lung. There is no focal consolidation, edema, or effusion. No pneumothorax. No acute osseous abnormality. XR/XR chest 2V IMPRESSION: Mild bronchial wall thickening can be seen with small airway disease. Electronically signed by: Jaswant Busby MD 04/14/2025 04:22 PM [facility] [place]
[2025-04-14 12:15] LABS: MANUAL DIFF FLAG NO
[2025-04-14 12:27] LABS: Hematocrit 41.1 % (37.0-47.0); Hemoglobin 13.2 g/dl (12.0-16.0); Imm Gran Abs Auto 0.01 X10*3/uL (0.00-0.03); Imm Gran Pct Auto 0.2 % (0.0-0.4); Lymphocytes Absolute Auto 1.6 X10*3/uL (1.2-4.9); Mean Corpuscular HGB Conc 32.1 g/dl (31.0-35.0); Mean Corpuscular Hemoglobin 29.7 pg (27.0-33.0); Mean Corpuscular Volume 92.4 fL (80.0-98.0); NRBC Abs Auto 0.000 X10*3/uL (0.0-0.012); NRBC Pct Auto 0.0 /100WBC (0.0-0.2); Platelet Count 223 X10*3/uL (160-400); Red Blood Count 4.45 X10*6/uL (4.20-5.50); White Blood Count 4.8 X10*3/uL (4.8-10.8)
[2025-04-15 21:59] LABS: Class Alternaria alternata 0; Class Aspergillus fumigatus 0; Class Bermuda Grass 0; Class Birch 0; Class Cat Dander 0; Class Cladosporium herbarum 0; Class Cockroach 0/1; Class Common Ragweed 0; Class Cottonwood 0; Class Derm. pterony 0; Class Dermatophagoides farinae 0; Class Dog Dander 0; Class Elm 0; Class Maple Box Elder 0; Class Mountain Cedar 0; Class Mouse Urine Protein 0; Class Mugwort 0; Class Oak 0; Class Penicillium crysogenum 0; Class Rough Pigweed 0; Class Sheep Sorrel 0; Class Sycamore 0; Class Timothy Grass 0; Class Walnut Tree 0; Class White Ash 0; Class White Mulberry 0; D002 - IgE D farinae <0.10 kU/L; E001 - IgE Cat Dander <0.10 kU/L; E005 - IgE Dog Dander <0.10 kU/L; G006 - IgE Timothy Grass <0.10 kU/L; I006-IgE Cockroach, German 0.11 kU/L; M002 - IgE Cladosporium herbar <0.10 kU/L; M003 - IgE Aspergillus fumigat <0.10 kU/L; M006 - IgE Alternaria alternat <0.10 kU/L; T001 IgE Maple/Box Elder <0.10 kU/L; T006 - IgE Cedar, Mountain <0.10 kU/L; T007 - IgE Oak, White <0.10 kU/L; T008 IgE Elm, American <0.10 kU/L; T010 - IgE Walnut <0.10 kU/L; T011 - IgE Maple Leaf Sycamore <0.10 kU/L; T014 - IgE Cottonwood <0.10 kU/L; T015 - IgE Ash, White <0.10 kU/L; T070 - IgE White Mulberry <0.10 kU/L; W001 - IgE Ragweed, Short <0.10 kU/L; W006 - IgE Mugwort <0.10 kU/L; W014 IgE Pigweed, Common <0.10 kU/L; W018 IgE Sheep Sorrel <0.10 kU/L
== END 2025-04-14 11:19 | disposition home or self-care (01) ==
LOC: HO.LAB 11:18
PROVIDERS: Visit Provider Nurse Practitioner Family
DX: J45.909 Unspecified asthma, uncomplicated (principal); Z91.09 Other allergy status, other than to drugs and biological substances; R06.00 Dyspnea, unspecified; Z79.899 Other long term (current) drug therapy; Z87.891 Personal history of nicotine dependence
CPT/HCPCS: 36415; 71046; 82785; 85025; 86003; 99202

== ENCOUNTER → 2025-04-14 12:16 | Outpatient (BNV) | payer MEDICARE, MEDICAID, SELFPAY | PROVIDERS: Visit Provider Radiology Diagnostic Ultrasound | DX: J98.09 Other diseases of bronchus, not elsewhere classified (principal) | CPT/HCPCS: 71046 ==